=== PATIENT | female | born 1950 | race Caucasian/White ===

== ENCOUNTER 2017-10-08 13:40 | Day surgery (SDC) | payer OTHER ==
[~2017-10-08] VITALS: Ht 170.2 cm; Wt 67.7 kg
[~2017-10-08 13:40] MED LIST: ABAC300 PO; ACEBUTCAFT; ALEN70; ALIS150T PO; ALLO100 PO; AMOCLA500 PO; ASCO500; ASPIRIN-ACETAM1 EACH; BUME1; BUME1 PO; BUME2; BUME2 PO; BUMETANIDE; BUPR100; BUPR100ER; BUPR150ER PO; BUPR150T2; BUPR150T2 PO; Budeprion Sr150 MG; Budeprion Sr150 MG PO; CEPH250A PO; CEPH500 PO; CHOL10002; CHOL10002 PO; CIPHYDOTSU OT; CIPR500 PO; COMBIVIR; CYCL10 PO; Clonazepam0.5 MG PO; Crestor20 MG PO; DEPLIN; DEPLIN PO; DILT120 PO; DILT240 PO; DILT360ER; DIPATR PO; DOXE0.5 PO; EDURANT PO; EDURANT25 MG; EDURANT25 MG PO; EFAV200; EFAV200 PO; EFFEXOR; EPZICOM; ESCI10; ESOM20; EXELON PATCH TOP; Effexor Xr150 MG; Epzicom Tablet1 EACH; Epzicom Tablet1 EACH PO; FEBU40TA; FERR325; FERR325 PO; FURO40; Fosamax70 MG PO; GLIM2; GLIM4; GLIM4 PO; GLIMEPIRIDE; HECTOROL1 MCG; HYDACE5 PO; HYDACE7.5 PO; INDO50 PO; INSLI100I SC; INSLIS75I SUBQ; INSU7030P; INSULANI; INSULANI SC; INSULANI SUBQ; INSULANPEN SC; INSULISPEN SC; IRON 325 MG; LAMZIDT; LAMZIDT PO; LAVAP17G PO; LEVE500 PO; LINZESS145 MCG; LINZESS290 MCG; LIRA0.6P; LIRA0.6P INJ; LORA1 PO; MAG OX; MAGCHL64ER; MAGCHL64ER PO; MAGN84; MAGOXI400; MAGOXI400 PO; MECL25 PO; MEMA10 PO; MEMA5TAB; METF500; METF500 PO; METF500C; METO10; METO5; METO5 PO; MIRT15; MIRT30; MIRT30 PO; MODA200; MULVITA; MULVITMINE; MULVITMINE PO; Meribin5 MG; Meribin5 MG PO; NITR.1TP TOP; OMEG1CAP30; OMEG1CAP30 PO; OMEP10ER; OMEP20ER; OMEP20ER PO; OXYACE5T PO; OXYACE7.5T PO; PARI1 PO; POTA10T; POTA10T PO; POTA8; POTCHL10ER PO; POTCHL20ER; POTCHL20ER PO; POTCIT10; PRED10 PO; PREG100 PO; PREG150; PREG150 PO; PREG50; PREG75; PREN-16 PO; PRENZ; PRENZ PO; PROM25 PO; PROP40; Prinivil10 MG; RAMI1.25; RAMI1.25 PO; RANI150; REMERON SOLUTAB; ROSU10TA; ROSU10TA PO; RXCYCL10 PO; RXHYDACE PO; RXOXYACE PO; SERT100; SPIR50; SPIR50 PO; TEKTURNA; TRULICITY1.5 MG/0.5; Uloric80 MG PO; VENL150ER PO; VENL75ER; VENL75ER PO; WARF2 PO; WARF2.5; WARF2.5 PO; WARF3; WARF3 PO; WARF4 PO; WARF5; WARF5 PO; WELLBUTRIN XL; XARELTO20 MG; [UNRECOGNIZED DRUG - CODE] PO; [UNRECOGNIZED DRUG - OTHER] PO
== END 2017-10-08 15:45 | disposition home or self-care (01) ==
LOC: ORSCSDS 13:40
PROVIDERS: Internal Medicine Gastroenterology
PROC: 0DBM8ZX Excision of Descending Colon, Via Natural or Artificial Opening Endoscopic, Diagnostic (ICD-10-PCS; principal; 2017-10-08 15:00)
PROC: 0DBH8ZX Excision of Cecum, Via Natural or Artificial Opening Endoscopic, Diagnostic (ICD-10-PCS; principal; 2017-10-08 15:00)
DX: D50.9 Iron deficiency anemia, unspecified (principal); D12.0 Benign neoplasm of cecum; D12.4 Benign neoplasm of descending colon; D12.5 Benign neoplasm of sigmoid colon; K57.30 Diverticulosis of large intestine without perforation or abscess without bleeding; K64.0 First degree hemorrhoids; B20 Human immunodeficiency virus [HIV] disease; I10 Essential (primary) hypertension; I48.91 Unspecified atrial fibrillation; E11.22 Type 2 diabetes mellitus with diabetic chronic kidney disease; N18.3 Chronic kidney disease, stage 3 (moderate); F17.210 Nicotine dependence, cigarettes, uncomplicated; E78.5 Hyperlipidemia, unspecified; Z79.899 Other long term (current) drug therapy; Z79.82 Long term (current) use of aspirin
CPT/HCPCS: 82947; 88305; J1815; J7120

== ENCOUNTER → 2017-10-26 | Outpatient (CLI) | payer OTHER ==
[~2017-10-26] MED LIST changes: +Norco 10-325 T1 EACH PO; +Zofran Odt4 MG SL
[2017-10-26 11:02] LABS: Creatinine Urine 33.1 mg/dL (27.00-270.00)
== END ==
LOC: LAB SHORT 08:30 → OLS 08:30 → LAB FUT 10-24 14:30
PROVIDERS: Internal Medicine Nephrology
DX: N18.2 Chronic kidney disease, stage 2 (mild) (principal); D63.1 Anemia in chronic kidney disease; N25.81 Secondary hyperparathyroidism of renal origin; E55.9 Vitamin D deficiency, unspecified; E78.00 Pure hypercholesterolemia, unspecified; R76.9 Abnormal immunological finding in serum, unspecified; R94.5 Abnormal results of liver function studies; R94.6 Abnormal results of thyroid function studies
CPT/HCPCS: 81050; 82530; 82570

== ENCOUNTER 2018-06-08 09:21 | Emergency (ER) | payer OTHER ==
[~2018-06-08] VITALS: Ht 165.1 cm; Wt 70.3 kg
[~2018-06-08 09:21] MED LIST changes: -Norco 10-325 T1 EACH PO; -Zofran Odt4 MG SL
[2018-06-08] MEDS ORDERED: Norco 10-325 T1 EACH PO (11:59)
[2018-06-08] MEDS ORDERED: Zofran Odt4 MG SL (11:59)
== END 2018-06-08 12:48 | disposition home or self-care (01) ==
LOC: ER 09:21
DX: S32.501A Unspecified fracture of right pubis, initial encounter for closed fracture (principal); S00.03XA Contusion of scalp, initial encounter; F32.9 Major depressive disorder, single episode, unspecified; E11.9 Type 2 diabetes mellitus without complications; F17.210 Nicotine dependence, cigarettes, uncomplicated; Z79.899 Other long term (current) drug therapy; Z79.84 Long term (current) use of oral hypoglycemic drugs; Z86.718 Personal history of other venous thrombosis and embolism; Z86.711 Personal history of pulmonary embolism; W18.30XA Fall on same level, unspecified, initial encounter
CPT/HCPCS: 70450; 73502; 99284-25

== ENCOUNTER 2019-10-18 15:07 | Emergency (ER) | payer OTHER ==
[~2019-10-18] VITALS: Ht 165.1 cm; Wt 70.3 kg
[~2019-10-18 15:07] MED LIST changes: +Norco 10-325 T1 EACH PO; +Zofran Odt4 MG SL
[2019-10-18 15:45] LABS: BASOPHILS ABSOLUTE AUTO 0.06 K/mm3 (0.00-0.23); BASOPHILS PERCENT AUTO 1 % (0-2); EOSINOPHILS ABSOLUTE AUTO 0.36 K/mm3 (0.00-0.68); EOSINOPHILS PERCENT AUTO 4 % (0-6); Hemoglobin 14.8 g/dL (11.5-16.0); IMMATURE GRAN ABSOLUTE AUTO 0.05 K/mm3 (0.00-0.10); IMMATURE GRAN PERCENT AUTO 1 % (0-1); LYMPHOCYTES ABSOLUTE AUTO 2.14 K/mm3 (0.84-5.20); LYMPHOCYTES PERCENT AUTO 21 % (21-46); MONOCYTES ABSOLUTE AUTO 0.55 K/mm3 (0.16-1.47); MONOCYTES PERCENT AUTO 5 % (4-13); Mean Corpuscular HGB 33.2 pg (26.0-34.0); Mean Corpuscular HGB Conc 31.5 g/dL (31.5-36.5); Mean Corpuscular Volume 105 fL (80-100); Mean Platelet Volume 12.6 fL (9.1-12.4); NEUTROPHILS ABSOLUTE AUTO 7.13 K/mm3 (1.96-9.15); NEUTROPHILS PERCENT AUTO 69 % (41-73); Platelet Count 203 K/mm3 (150-400); RDW Coefficient Variation 13.7 % (11.7-14.2); RDW Standard Deviation 54.1 fL (35.1-46.3); Red Blood Cell Count 4.46 M/mm3 (3.80-5.20); White Blood Cell Count 10.29 K/mm3 (4.00-11.30)
[2019-10-18 15:57] LABS: International Normalized Ratio 1.01; Prothrombin Time Results 10.8 Sec (9.7-11.5)
[2019-10-18 16:02] LABS: Albumin, Blood 3.8 g/dL (3.4-5.0); Albumin/Globulin Ratio 1.1 (0.8-1.8); Bilirubin, Total 0.3 mg/dL (0.1-1.0); Bun/Creatinine Ratio 30.8 (12.0-20.0); Creatinine, Blood 1.07 mg/dL (0.40-1.00); Globulin, Blood 3.5 g/dL (2.2-4.0); Potassium, Blood 4.1 mmol/L (3.5-5.5); Total Protein, Blood 7.3 g/dL (6.4-8.2)
== END 2019-10-18 17:39 | disposition home or self-care (01) ==
LOC: ER 15:07
PROVIDERS: Physician Assistant
DX: I82.811 Embolism and thrombosis of superficial veins of right lower extremity (principal); F32.9 Major depressive disorder, single episode, unspecified; E11.9 Type 2 diabetes mellitus without complications; F17.210 Nicotine dependence, cigarettes, uncomplicated; Z88.8 Allergy status to other drugs, medicaments and biological substances; Z88.2 Allergy status to sulfonamides; Z79.899 Other long term (current) drug therapy; Z79.84 Long term (current) use of oral hypoglycemic drugs; Z79.82 Long term (current) use of aspirin; Z86.711 Personal history of pulmonary embolism; Z86.718 Personal history of other venous thrombosis and embolism
CPT/HCPCS: 36415; 80053; 85025; 85610; 85730; 93971; 99284-25

== ENCOUNTER → 2020-01-09 | Outpatient (CLI) | payer OTHER | LOC: LAB SHORT 11:49 → LAB 11:49 → LAB FUT 12-29 08:45 | PROVIDERS: Internal Medicine Endocrinology, Diabetes & Metabolism | DX: D35.02 Benign neoplasm of left adrenal gland (principal) | CPT/HCPCS: 81050; 82530 ==

== ENCOUNTER → 2020-02-09 | Outpatient (CLI) | payer OTHER | END | disposition home or self-care (01) | LOC: LAB UCHC 14:37 → LAB SHORT 14:37 | DX: N39.0 Urinary tract infection, site not specified (principal); A02.9 Salmonella infection, unspecified | CPT/HCPCS: 87086 ==

== ENCOUNTER → 2020-02-09 | Outpatient (CLI) | payer OTHER | END | disposition home or self-care (01) | LOC: OLS 22:30 → LAB SHORT 22:30 → LAB FUT 02-08 13:30 → EDSTATUS 02-08 13:30 | DX: A02.9 Salmonella infection, unspecified (principal) | CPT/HCPCS: 87015; 87045; 87046; 87205; 87899 ==

== ENCOUNTER → 2020-03-04 | Outpatient (CLI) | payer OTHER ==
[~2020-03-04] MED LIST changes: +BASAGLAR K100 UNIT/1 SC; -CHOL10002; +ELIQUIS5 MG PO; -FEBU40TA; +FEBU40TA PO; +GLIM2 PO; -METF500C; +METF500C PO; -PREG150; +PROLIA60 MG/1 ML SC; +Pepcid20 MG PO; -Prinivil10 MG; +Prinivil10 MG PO; +Prozac40 MG PO; +TOPI100 PO; +TRULICITY0.75 MG/01 SC; -TRULICITY1.5 MG/0.5; +VITAMIN D310 MC4 PO
== END ==
LOC: LAB 14:45 → LAB SHORT 14:45 → LAB FUT 02-25 15:00
DX: D35.02 Benign neoplasm of left adrenal gland (principal); E24.9 Cushing's syndrome, unspecified
CPT/HCPCS: 82533

== ENCOUNTER 2020-08-12 00:27 | Emergency (ER) | payer OTHER ==
[~2020-08-12] VITALS: Ht 167.6 cm; Wt 70.3 kg
== END 2020-08-12 01:14 | disposition home or self-care (01) ==
LOC: ER 00:27
DX: I97.618 Postprocedural hemorrhage of a circulatory system organ or structure following other circulatory system procedure (principal); F32.9 Major depressive disorder, single episode, unspecified; E11.9 Type 2 diabetes mellitus without complications; F17.210 Nicotine dependence, cigarettes, uncomplicated; Z88.1 Allergy status to other antibiotic agents; Z88.2 Allergy status to sulfonamides; Z88.8 Allergy status to other drugs, medicaments and biological substances; Z79.4 Long term (current) use of insulin; Z21 Asymptomatic human immunodeficiency virus [HIV] infection status; Z79.01 Long term (current) use of anticoagulants; Z79.899 Other long term (current) drug therapy; Z86.718 Personal history of other venous thrombosis and embolism
CPT/HCPCS: 99282-25

== ENCOUNTER 2020-08-26 11:30 | Emergency (ER) | payer OTHER ==
[~2020-08-26] VITALS: Ht 170.2 cm; Wt 68.0 kg
[2020-08-26 13:47] LABS: Hemoglobin 12.2 g/dL (11.5-16.0); Mean Corpuscular HGB Conc 32.1 g/dL (31.5-36.5); Mean Corpuscular Volume 100 fL (80-100); Mean Platelet Volume 12.8 fL (9.1-12.4); Platelet Count 193 K/mm3 (150-400); RDW Coefficient Variation 14.9 % (11.7-14.2); RDW Standard Deviation 55.8 fL (35.1-46.3); Red Blood Cell Count 3.81 M/mm3 (3.80-5.20); White Blood Cell Count 11.63 K/mm3 (4.00-11.30)
[2020-08-26 14:01] LABS: International Normalized Ratio 1.07; Prothrombin Time Results 11.4 Sec (9.7-11.5)
[2020-08-26 14:09] LABS: Anion Gap 7 mmol/L (6-16); Blood Urea Nitrogen 22 mg/dL (8-24); Bun/Creatinine Ratio 26.3 (12.0-20.0); CO2, Blood 22 mmol/L (21-32); Calcium, Blood 8.8 mg/dL (8.5-10.1); Chloride, Blood 116 mmol/L (98-108); Creatinine, Blood 0.84 mg/dL (0.40-1.00); Glomerular Filtration Rate >60 (60-); Glucose, Blood 101 mg/dL (70-99); Potassium, Blood 3.8 mmol/L (3.5-5.5); Sodium, Blood 145 mmol/L (136-145)
[2020-08-26 14:11] LABS: Influenza A, PCR Negative (NEGATIVE); Influenza B, PCR Negative (NEGATIVE); Resp Syncytial Virus, PCR Negative (NEGATIVE); SARS-Cov-2 (COVID-19) PCR, MMC Negative (NEGATIVE)
== END 2020-08-26 14:15 | disposition other institution (70) ==
LOC: ER 11:30
PROVIDERS: Physician Assistant; Radiology Diagnostic Radiology
DX: M79.671 Pain in right foot (principal); E11.9 Type 2 diabetes mellitus without complications; F32.9 Major depressive disorder, single episode, unspecified; F17.210 Nicotine dependence, cigarettes, uncomplicated; Z20.828 Contact with and (suspected) exposure to other viral communicable diseases; Z79.01 Long term (current) use of anticoagulants; Z79.4 Long term (current) use of insulin; Z79.899 Other long term (current) drug therapy; Z88.6 Allergy status to analgesic agent; Z88.2 Allergy status to sulfonamides; Z88.8 Allergy status to other drugs, medicaments and biological substances; Z21 Asymptomatic human immunodeficiency virus [HIV] infection status; Z86.718 Personal history of other venous thrombosis and embolism
CPT/HCPCS: 0241U; 36415; 80048; 85027; 85610; 99285; J1644; J2250; J3010; J7030; J7040; J7050

== ENCOUNTER 2020-08-26 15:28 | Day surgery (SDC) | payer OTHER ==
[~2020-08-26 15:28] MED LIST changes: -BUME2; -Budeprion Sr150 MG; -VITAMIN D310 MC4 PO; +VITAMIN D31000 UNI1 PO
--- NOTE | 2020-08-26 15:44 | NUR ---
154 PATIENT ASSISTED UP AND SITTING ON THE SIDE OF THE BED. RFA GROIN SITE OBSERVED. DRESSING CDI, SOFT, NO BLEEDING. PATIENT DRESSING SELF. RIDE HERE IN THE PARKING LOT. GATHERED ALL BELONGINGS. VVS. NO C/O PAIN FROM THE PATIENT. PIV CATHETER REMOVED, TIP INTACT AND PRESSURE DRESSING APPLIED. REVIEWED ALL DISCAHRGE INSTRUCTIONS WITH THE PATIENT AND COPIES. PATIENT TAKEN VIOA WHEELCHAIR TO PATIENT ENTRANCE AND DISCHARGED HOME WITH BUILDING MAINTENANCE REPAIRER, HELLEN, SISTER IN LAW.
--- NOTE | 2020-08-26 16:57 | NUR ---
PATIENT BROUGHT TO THE [facility] FOR A PERIPHERAL INTERVENTION FROM THE EMERGENCY ROOM. POST MAGAZINE EDITOR VISIT PATIENT WAS BROUGHT TO THE [facility] RECOVERY ROOM FOR POST PERIPHERAL INTERVENTION OBSERVATION. PLAN TO DISCAHRGE FROM HERE ORDERED BY DR. YOUSSEF.
--- NOTE | 2020-08-26 17:17 | NUR ---
ASSUMED CARE OF PATIENT S/P PERIPHERAL ANGIOGRAM. RFA ANGIOSEAL IN PLACE. SOFT, NO HEMATOMA NOTED, NO BLEEDING. PLACED ON THE MONITOR IN THE [facility] CENTER RECOVERY ROOM. CALL LIGHT IN REACH. DIET ORDERED. PATIENT PHONED FAMILY TO INFORM THEM WHERE SHE WAS LOCATED AND OF APPROXIMATE DISCHARGE TIME. DOPPLER PULSES NOTED TO THE RIGHT PT ONLY. PATIENT ON ROOM AIR.
--- NOTE | 2020-08-26 17:43 | NUR ---
HOB UP 30 DEGREES AND DINER TRAY SET UP FOR PATIENT TO EAT. LEFT GROIN STABLE. VVS.
--- NOTE | 2020-08-26 18:13 | NUR ---
LEFT GROIN CHECK, STABLE NO BLEEDING. STATES NO PAIN TO THE GROIN SITE BUT STATING THERE IS PAIN TO THE RIGHT FOOT. WAS A 10/10 WHEN SHE ARRIVED TODAY IN THE ER ADN NOT THE PAIN IN THE FOOT IS 7/10. SHE IS ABLE TO FEEL THE NURSE TOUCH THE FOOT AND HAD GOOD PUSH AGAINST NURSES HAND ON BOTTOM OF THE RIGHT FOOT.
--- NOTE | 2020-08-26 19:14 | NUR ---
LEFT GROIN UNCHANGED. PATIENT ON THE BEDPAN WITH ASSISTANCE. LOOSE STOOL NOTED. RUBY CARE GIVEN AND TAKEN OFF BEDPAN VIA LOG ROLLING WITH TWO NURSE ASSIST. PATIENT TOLERATED WELL.
--- NOTE | 2020-08-26 19:49 | NUR ---
1939 PATIENT ASSISTED TO SITTING ON THE SIDE OF THE BED. OFF MONITOR. STOOD ON OWN WITH WALKER SUPPORT. SMALL AMOUNT OF BLEEDING FROM RIGHT ANKLE PUNCTURE ATTEMPT. NO HEMATOMA NOTED. SEVERO PAD AND TEGADERM APPLIED TO RIGHT PT SITE. NO ACTIVE BLEED NOTED ONCE LEG UP ON THE BED. REVIEWED DISCHARGE INSTRUCTIONS WITH THE PATIENT.SHE WILL NEED TO CALL FOR FOLLOW UP APPOINTMENT TOMORROW FOR THREE WEEKS. PATIENT VERBALIZES UNDERSTANDING OF INSTRUCTIONS.
--- NOTE | 2020-08-26 19:52 | NUR ---
PATIENT ASSISTED WITH DRESSING. ALL BELONGINGS GATHERED AND PATIENT DRESSED. VVS. PIV DISCONTINUED, CATHETER TIP INTACT. PRESSURE DRESSING APPLIED TO IV SITE.
--- NOTE | 2020-08-26 20:13 | NUR ---
PATIENT DISCAHRGED VIA WHEELCHAIR TO PRIVATE VEHICLE/FAMILY WITH ALL BELONGINGS AND INSTRUCTIONS IN HAND.
[2020-12-20] MEDS ORDERED: CLOP75 PO (16:19)
[2020-12-20] MEDS ORDERED: Pristiq100 MG PO (16:20)
[2020-12-20] MEDS ORDERED: AIMOVIG AU70 MG/1 ML SC (16:21)
== END 2020-08-26 23:05 | disposition home or self-care (01) ==
LOC: MHTC 15:28
DX: E11.51 Type 2 diabetes mellitus with diabetic peripheral angiopathy without gangrene (principal); I70.211 Atherosclerosis of native arteries of extremities with intermittent claudication, right leg; I12.9 Hypertensive chronic kidney disease with stage 1 through stage 4 chronic kidney disease, or unspecified chronic kidney disease; E11.22 Type 2 diabetes mellitus with diabetic chronic kidney disease; N18.9 Chronic kidney disease, unspecified; G25.0 Essential tremor; I48.91 Unspecified atrial fibrillation; F17.210 Nicotine dependence, cigarettes, uncomplicated; D66 Hereditary factor VIII deficiency; Z20.828 Contact with and (suspected) exposure to other viral communicable diseases; Z88.2 Allergy status to sulfonamides; Z88.8 Allergy status to other drugs, medicaments and biological substances; Z79.4 Long term (current) use of insulin; Z79.01 Long term (current) use of anticoagulants; Z79.899 Other long term (current) drug therapy; Z86.718 Personal history of other venous thrombosis and embolism; Z86.711 Personal history of pulmonary embolism; Z21 Asymptomatic human immunodeficiency virus [HIV] infection status; F32.9 Major depressive disorder, single episode, unspecified
CPT/HCPCS: 0241U; 36140; 36415; 37224; 37228; 37232; 75716; 75774; 76937; 80048; 85027; 85610; 99152; 99153; 99285; C1725; C1760; C1769; C1887; C1894; J1644; J2250; J3010; J7030; J7040; J7050; Q9967

== ENCOUNTER 2020-11-17 05:56 | Day surgery (SDC) | payer OTHER ==
[~2020-11-17] VITALS: Ht 167.6 cm; Wt 64.4 kg
--- NOTE | 2020-11-17 11:00 | NUR ---
Pt received from Sanjeev Alves RN & Jay Weekly MASSAGE THERAPIST Pt alert and oriented denies pain. IV infusing into the Left AC with 300 NS BOSTON. Pt has a left groin site that is dry and intact with no bleeding noted, Left foot has two punture sites with a cristo wrap for bleeding in the landscape and yardwork laborer. The cristo wrap was removed both sites are normal with DP with site marked were there is a ugashik of old blood. Doppler left leg PT & DP present foot is warm to touch. I have spoken to spouse who has some type of neuro issue he is in the waiting area. I have given both patient and spouse water. Cleaned left groin area and foot. Call light given, pt is in reverse trendelenburg.
--- NOTE | 2020-11-17 13:42 | NUR ---
Dr. Medel here in recovery room talking to patient regarding results as well as putting patient on PLavix for one month. To follow up in two weeks.
--- NOTE | 2020-11-17 14:12 | NUR ---
PT VERBALIZED UNDERSTANDING OF D/C INSTRUCTIONS. PAPERWORK PROVIDED IN FOLDER. IV REMOVED FROM LAC WITH CATH INTACT, PRESSURE DRESSING APPLIED. ASSISTED INTO W/C, IN WAITING AREA TO DRIVE PT HOME. NO ACUTE DISTRESS NOTED AT TIME OF DISPO.
[2020-12-20] MEDS ORDERED: CLOP75 PO (16:19)
[2020-12-20] MEDS ORDERED: Pristiq100 MG PO (16:20)
[2020-12-20] MEDS ORDERED: AIMOVIG AU70 MG/1 ML SC (16:21)
== END 2020-11-17 15:10 | disposition home or self-care (01) ==
LOC: MHTC 05:56
DX: I70.213 Atherosclerosis of native arteries of extremities with intermittent claudication, bilateral legs (principal); I87.2 Venous insufficiency (chronic) (peripheral); I10 Essential (primary) hypertension; E11.51 Type 2 diabetes mellitus with diabetic peripheral angiopathy without gangrene; E11.69 Type 2 diabetes mellitus with other specified complication; B20 Human immunodeficiency virus [HIV] disease; Z87.891 Personal history of nicotine dependence; Z86.718 Personal history of other venous thrombosis and embolism; Z86.711 Personal history of pulmonary embolism; Z88.2 Allergy status to sulfonamides; Z88.8 Allergy status to other drugs, medicaments and biological substances; Z91.048 Other nonmedicinal substance allergy status; Z79.4 Long term (current) use of insulin
CPT/HCPCS: 37224; 37228; 37232; 75625; 75716; 75774; 76937; 82947; 85347; 99152; 99153; A9270; C1725; C1760; C1769; C1887; C1894; J1644; J2250; J3010; J7030; J7050; Q9967

== ENCOUNTER 2020-12-04 11:19 | Emergency (ER) | payer OTHER ==
[~2020-12-04] VITALS: Ht 167.6 cm; Wt 68.0 kg
[2020-12-20] MEDS ORDERED: CLOP75 PO (16:19)
[2020-12-20] MEDS ORDERED: Pristiq100 MG PO (16:20)
[2020-12-20] MEDS ORDERED: AIMOVIG AU70 MG/1 ML SC (16:21)
== END 2020-12-04 13:26 | disposition home or self-care (01) ==
LOC: ER 11:19
DX: S00.03XA Contusion of scalp, initial encounter (principal); E11.9 Type 2 diabetes mellitus without complications; Z88.6 Allergy status to analgesic agent; Z88.8 Allergy status to other drugs, medicaments and biological substances; Z88.2 Allergy status to sulfonamides; W22.8XXA Striking against or struck by other objects, initial encounter; Y92.000 Kitchen of unspecified non-institutional (private) residence as the place of occurrence of the external cause
CPT/HCPCS: 70450; 99283-25

== ENCOUNTER 2020-12-21 06:04 | Day surgery (SDC) | payer OTHER ==
[~2020-12-21] VITALS: Ht 167.6 cm; Wt 65.4 kg
[~2020-12-21 06:04] MED LIST changes: +AIMOVIG AU70 MG/1 ML; +BUME2; +CLOP75 PO; +DESV50 PO
--- NOTE | 2020-12-21 12:40 | NUR ---
PT UP TO BATHROOM, GROIN AND PEDAL SITE STABLE. DRESSED PER SELF. SALINE LOCK REMOVED WITH CATHETER INTACT. DISCHARGE GONE OVER WITH PT AND , BOTH VERBALIZE UNDERSTANDING. PT TO PRIVATE VEHICLE PER W/C
== END 2020-12-21 13:00 | disposition home or self-care (01) ==
LOC: MHTC 06:04
DX: I70.213 Atherosclerosis of native arteries of extremities with intermittent claudication, bilateral legs (principal); G89.18 Other acute postprocedural pain; E11.69 Type 2 diabetes mellitus with other specified complication; I48.91 Unspecified atrial fibrillation; I10 Essential (primary) hypertension; Z87.891 Personal history of nicotine dependence; Z20.822 Contact with and (suspected) exposure to COVID-19
CPT/HCPCS: 37226; 37230; 37232; 75625; 75716; 75774; 76937; 85347; 99152; 99153; C1725; C1760; C1769; C1874; C1885; C1887; C1894; C2623; J1644; J2250; J3010; J7030; J7050; Q9967

== ENCOUNTER 2020-12-23 11:16 | Day surgery (SDC) | payer OTHER ==
[~2020-12-23] VITALS: Ht 167.6 cm; Wt 64.0 kg
--- NOTE | 2020-12-23 17:05 | NUR ---
ASSUMED CARE OF PT. PT DOSING, BUT EASILY AROUSABLE; ANSWERS QUESTIONS APPROPRIATELY; DENIES PAIN POST PROCEDURE. MONITOR SR 70'S, B/P 105/57, SPO2 98-100% RA. L GROIN NO SWELLING/HEMATOMA, TEGADERM DRSG INTACT; RLE PULSES 1+ X 2. R DP SITE NO SWELLING/HEMATOMA, SEVERO AND TEGADERM DRSG INTACT-OLD DRAINAGE W/I MAPPING.
--- NOTE | 2020-12-23 17:35 | NUR ---
PT AMB TO BATHROOM, GAIT STEADY; VOIDED QS, SITE UNCHANGED WITH ACTIVITY.
--- NOTE | 2020-12-23 17:45 | NUR ---
PT DRESSED SELF WITHOUT ISSUE, SITE UNCHANGED; IV REMOVED-CANNULA INTACT.
--- NOTE | 2020-12-23 17:51 | NUR ---
PT AND SPOUSE RECEIVED DISCHARGE INSTRUCTIONS, MED LIST AND AFTER CARE INSTRUCTIONS; VERBALIZED GOOD UNDERSTANDING. PT LEFT FACILITY VIA W/C, CONDITION STABLE.
== END 2020-12-23 22:42 | disposition home or self-care (01) ==
LOC: MHTC 11:16
DX: I70.213 Atherosclerosis of native arteries of extremities with intermittent claudication, bilateral legs (principal); I48.91 Unspecified atrial fibrillation; E11.9 Type 2 diabetes mellitus without complications; I10 Essential (primary) hypertension; Z86.718 Personal history of other venous thrombosis and embolism; Z88.5 Allergy status to narcotic agent; Z88.8 Allergy status to other drugs, medicaments and biological substances; Z79.01 Long term (current) use of anticoagulants; Z79.899 Other long term (current) drug therapy; Z20.822 Contact with and (suspected) exposure to COVID-19
CPT/HCPCS: 76937; 82947; 85347; 99152; 99153; C1725; C1760; C1769; C1885; C1887; C1894; C2623; J1644; J2250; J3010; J7030; J7050; Q9967

== ENCOUNTER 2021-01-15 12:05 | Inpatient (IN) | payer MEDICARE, OTHER ==
[~2021-01-15] VITALS: Ht 167.6 cm; Wt 67.2 kg
[~2021-01-15 12:05] MED LIST changes: -AIMOVIG AU70 MG/1 ML; +AIMOVIG AU70 MG/1 ML SC; -BUME2; -DESV50 PO; +Pristiq100 MG PO
[2021-01-15 12:35] LABS: BASOPHILS ABSOLUTE AUTO 0.07 K/mm3 (0.00-0.23); BASOPHILS PERCENT AUTO 1 % (0-2); EOSINOPHILS ABSOLUTE AUTO 0.31 K/mm3 (0.00-0.68); EOSINOPHILS PERCENT AUTO 4 % (0-6); Hematocrit 29.2 % (33.0-51.0); Hemoglobin 9.3 g/dL (11.5-16.0); IMMATURE GRAN ABSOLUTE AUTO 0.02 K/mm3 (0.00-0.10); IMMATURE GRAN PERCENT AUTO 0 % (0-1); LYMPHOCYTES ABSOLUTE AUTO 1.27 K/mm3 (0.84-5.20); LYMPHOCYTES PERCENT AUTO 15 % (21-46); MONOCYTES ABSOLUTE AUTO 0.43 K/mm3 (0.16-1.47); MONOCYTES PERCENT AUTO 5 % (4-13); Mean Corpuscular HGB 33.1 pg (26.0-34.0); Mean Corpuscular HGB Conc 31.8 g/dL (31.5-36.5); Mean Corpuscular Volume 104 fL (80-100); Mean Platelet Volume 12.8 fL (9.1-12.4); NEUTROPHILS ABSOLUTE AUTO 6.39 K/mm3 (1.96-9.15); NEUTROPHILS PERCENT AUTO 75 % (41-73); Platelet Count 188 K/mm3 (150-400); RDW Coefficient Variation 16.2 % (11.7-14.2); RDW Standard Deviation 62.6 fL (35.1-46.3); Red Blood Cell Count 2.81 M/mm3 (3.80-5.20); White Blood Cell Count 8.49 K/mm3 (4.00-11.30)
[2021-01-15] MEDS ORDERED: ROSUVASTATIN CA40 MG PO (12:47)
[2021-01-15 12:50] LABS: Calcium, Ionized (POC) 1.05 mmol/L (1.10-1.46); Chloride (POC) 119 mmol/L (98-108); Creatinine (POC) 4.1 mg/dL (0.6-1.0); Glucose (ISTAT POC) 117 mg/dL (70-99); Hemoglobin (POC) 6.5 g/dL (12.0-16.0); Potassium (POC) 4.6 mmol/L (3.5-5.5); Sodium (POC) 143 mmol/L (135-148); Total CO2 (POC) 12 mmol/L (21-32)
[2021-01-15 13:02] LABS: Alanine Aminotransfer (ALT/SGP 25 U/L (12-78); Albumin, Blood 2.7 g/dL (3.4-5.0); Albumin/Globulin Ratio 0.9 (0.8-1.8); Alk Phos 63 U/L (50-136); Anion Gap 12 mmol/L (6-16); Aspartate Aminotrans (AST/SGOT 28 U/L (12-37); Bilirubin, Total 0.9 mg/dL (0.1-1.0); Blood Urea Nitrogen 96 mg/dL (8-24); Bun/Creatinine Ratio 23.5 (12.0-20.0); CO2, Blood 12 mmol/L (21-32); Calcium, Blood 7.4 mg/dL (8.5-10.1); Chloride, Blood 116 mmol/L (98-108); Creatinine, Blood 4.08 mg/dL (0.40-1.00); Ethanol (Alcohol), Blood, Med <3 mg/dL; Free Thyroxine 0.79 ng/dL (0.70-1.60); Glomerular Filtration Rate 12 (60-); Glucose, Blood 127 mg/dL (70-99); Magnesium, Blood 1.9 mg/dL (1.6-2.4); Sodium, Blood 140 mmol/L (136-145); Total Protein, Blood 5.7 g/dL (6.4-8.2); Troponin I <0.015 ng/mL (0.000-0.040)
[2021-01-15] MEDS ORDERED: VASCEPA1 G1 PO (13:17)
[2021-01-15] MEDS ORDERED: BASAGLAR K100 UNIT/1 (13:17)
[2021-01-15 13:23] LABS: U Amphetamine Screen Not Detected; U Barbituate Screen Not Detected; U Benzodiazapine Screen Not Detected; U Buprenorphine Screen Not Detected; U Cannabinoids Screen Not Detected; U Cocaine Screen Not Detected; U Methadone Screen Not Detected; U Methamphetamine Screen Not Detected; U Opiates Screen DETECTED; U Oxycodone Screen Not Detected; U Phencyclidine Screen Not Detected; U Propoxyphene Screen Not Detected
[2021-01-15 13:48] LABS: PCO2 Arterial 27.2 mmHg (35-45); PO2 Arterial 90.5 mmHg (80-100); pH Blood Arterial 7.17 (7.35-7.45)
[2021-01-15 14:08] LABS: Source, Urine Catheter
[2021-01-15 14:14] LABS: Appearance, Urine Turbid (Clear); Bilirubin, Urine Neg (Neg); Blood, Urine 3+ (Neg); Color, Urine Yellow (P-Yellow); Glucose Qualitative, Urine Neg (Neg); Ketones, Urine Neg (Neg); Leukocyte Esterase, Urine 3+ (Neg); Nitrite, Urine Neg (Neg); Protein, Urine 2+ (Neg); Specific Gravity, Urine 1.015 (1.003-1.022); Urobilinogen, Urine NORM (Normal)
[2021-01-15 14:22] LABS: White Blood Cells, Urine TNTC /hpf (0-5)
[2021-01-15 14:26] LABS: Bacteria Many /hpf; Squamous Epithelial Cells Mod /hpf (Few)
[2021-01-15 15:57] LABS: Albumin, Blood 2.5 g/dL (3.4-5.0); Anion Gap 11 mmol/L (6-16); Blood Urea Nitrogen 86 mg/dL (8-24); Bun/Creatinine Ratio 23.3 (12.0-20.0); CO2, Blood 14 mmol/L (21-32); Calcium, Blood 6.8 mg/dL (8.5-10.1); Chloride, Blood 119 mmol/L (98-108); Creatinine, Blood 3.69 mg/dL (0.40-1.00); Glomerular Filtration Rate 13 (60-); Glucose, Blood 178 mg/dL (70-99); Phosphorus, Blood 4.1 mg/dL (2.5-4.9); Potassium, Blood 4.9 mmol/L (3.5-5.5); Sodium, Blood 144 mmol/L (136-145)
[2021-01-15 16:10] LABS: International Normalized Ratio 1.19; Prothrombin Time Results 12.7 Sec (9.7-11.5)
[2021-01-15 16:34] LABS: PCO2 Arterial 27.2 mmHg (35-45); PO2 Arterial 120 mmHg (80-100); pH Blood Arterial 7.25 (7.35-7.45)
--- NOTE | 2021-01-15 18:38 | NUR ---
PT ADMITTED TO ICU FROM ER AT 1650 FOR UROSEPSIS. PT ARRIVED W LEVOPHED AT 2MCG, BICARB GTT AT 100, NS AT 125. PER BENNY DREW DC'D. HEPARIN GTT STARTED AT 15UNITS/KG/HR PER PHARMACY; PT HAS RECENT HX OF BLOOD CLOTS/DVT. PT HAS HAD RECENT PERIPHERAL ANGIOGRAM W DR YOUSSEF. RIGHT TOES RED AND SWOLLEN; PT STATES DR YOUSSEF AWARE. FEET ARE PINK WARM, DOPPLER ONLY TO RIGHT DP/PT. PT WIDE AWAKE, DENIES C/O PAIN, NAUSEA. PT VERY SLOW TO RESPOND TO QUESTIONS, SOME SPEECH SLIGHTLY SLURRED. PT SHOWS SYMPTOMS OF EXPRESSIVE APHASIA. PT'S STRENGTH IS EQUAL AND STRONG, HEAD CT NEG.
--- NOTE | 2021-01-15 19:40 | NUR ---
SHIFT ASSESSMENT ASSUMED CARE OF PT @ 1900, REPORT RECEIVED FROM ALON CESAR. PT A&OX4, SLOW TO RESPOND. PER PREVIOUS NURSE PT HAS BEEN BECOMING MUCH MORE RESPONSIVE IN THE LAST COUPLE HOURS. ON BICARB GTT @ 100ML/HR, NS @ TKO, HEPARING GTT @ 15U/KG/HR AND LEVOPHED @ 2MCG c A MAP >65. TEMP GUERRERO CATH DRAINING YELLOW URINE. PT RECENTLY UNDERWENT AN ANGIOGRAM TO RIGHT LEG. RIGHT TOES RED AND MILDLY SWOLLEN. R DORSALIS PEDIS AND POSTERIOR TIBIAL PULSE CONFIRMED WITH DOPPLER, PT REPORTS SENSATION OF ALL THE REDDENED TOES, STATES THIS IS HOW THEY HAVE LOOKED SINCE THE PROCEDURE. WILL CONTNIUE TO CLOSELY MONITOR.
[2021-01-15 20:07] LABS: PCO2 Arterial 26.4 mmHg (35-45); PO2 Arterial 112 mmHg (80-100); pH Blood Arterial 7.24 (7.35-7.45)
[2021-01-15 20:54] LABS: Bun/Creatinine Ratio 23.3 (12.0-20.0); Calcium, Blood 7.4 mg/dL (8.5-10.1); Creatinine, Blood 3.6 mg/dL (0.40-1.00); Potassium, Blood 4.5 mmol/L (3.5-5.5)
[2021-01-16 03:36] LABS: BASOPHILS ABSOLUTE AUTO 0.01 K/mm3 (0.00-0.23); BASOPHILS PERCENT AUTO 0 % (0-2); EOSINOPHILS PERCENT AUTO 0 % (0-6); Hematocrit 26.9 % (33.0-51.0); IMMATURE GRAN ABSOLUTE AUTO 0.04 K/mm3 (0.00-0.10); IMMATURE GRAN PERCENT AUTO 1 % (0-1); LYMPHOCYTES ABSOLUTE AUTO 0.87 K/mm3 (0.84-5.20); LYMPHOCYTES PERCENT AUTO 14 % (21-46); MONOCYTES ABSOLUTE AUTO 0.08 K/mm3 (0.16-1.47); MONOCYTES PERCENT AUTO 1 % (4-13); Mean Corpuscular HGB 33.1 pg (26.0-34.0); Mean Corpuscular HGB Conc 33.5 g/dL (31.5-36.5); Mean Corpuscular Volume 99 fL (80-100); Mean Platelet Volume 12.8 fL (9.1-12.4); NEUTROPHILS ABSOLUTE AUTO 5.34 K/mm3 (1.96-9.15); NEUTROPHILS PERCENT AUTO 84 % (41-73); Platelet Count 166 K/mm3 (150-400); RDW Coefficient Variation 15.9 % (11.7-14.2); Red Blood Cell Count 2.72 M/mm3 (3.80-5.20); White Blood Cell Count 6.34 K/mm3 (4.00-11.30)
[2021-01-16 04:25] LABS: Base Excess Venous -8.2 mmol/L; Bicarbonate Venous 18.4 mmol/L (24.0-30.0); PCO2 Venous 32.7 mmHg (38-42); PO2 Venous 142 mmHg (38-42); pH Blood Venous 7.34 (7.34-7.37)
[2021-01-16 05:04] LABS: Albumin, Blood 2.3 g/dL (3.4-5.0); Albumin/Globulin Ratio 0.9 (0.8-1.8); Bilirubin, Total 0.6 mg/dL (0.1-1.0); Bun/Creatinine Ratio 23.7 (12.0-20.0); Calcium, Blood 6.4 mg/dL (8.5-10.1); Creatinine, Blood 3.34 mg/dL (0.40-1.00); Globulin, Blood 2.5 g/dL (2.2-4.0); Magnesium, Blood 1.6 mg/dL (1.6-2.4); Phosphorus, Blood 3.6 mg/dL (2.5-4.9); Potassium, Blood 3.8 mmol/L (3.5-5.5); Total Protein, Blood 4.8 g/dL (6.4-8.2)
--- NOTE | 2021-01-16 06:08 | NUR ---
SHIFT SUMMARY PT REMAINS A&OX4. RESPONSE TIME TO QUESTIONING HAS IMPROVED DURING THE NIGHT. PT REMAINS ON THE BICARB AND HEPARIN GTT, NO CHANGES IN RATE. LEVOPHED HAS BEEN ON STANDBY SINCE MIDNIGHT WHILE MAINTAINING A MAP >65. STARTED PT ON MIDODRINE PO TID. PULSES CONTINUE TO REMAIN PATENT VIA DOPPLER IN THE RIGHT LOWER EXTREMITY. GUERRERO CATH CONTINUES TO DRAIN YELLOW/ CLOUDY URINE. NO OTHER SIGNIFICANT CHANGES IN PT CONDITION, WILL CONTINUE TO MONITOR.
--- NOTE | 2021-01-16 08:48 | NUR ---
CARE OF PT ASSUMED AT 0700. PT SLEEPING SOUNDLY, AROUSES TO LOUD VOICE, HAS DIFFICULTY WAKING UP COMPLETELY THIS AM, PT STATES SHE DID NOT SLEEP WELL LAST NIGHT. PT CONTINUES TO HAVE SYMPTOMS OF EXPRESSIVE APHASIA, PT ALSO HAS TREMOR TO ARMS. STRENGTH STRONG AND EQUAL. PT STATES SHE HAS HAD THIS FOR > 1 YEAR WHEN ASKED. HEPARIN GTT WAS REDUCED TO 14UNITS THIS AM PER PHARMACY. LEVOPHED REMAINS OFF W MAP >65.
--- NOTE | 2021-01-16 08:58 | NUR ---
PT MORE AWAKE NOW EATING BREAKFAST. DR IVERSON IN TO SEE PT. FULL UPDATE GIVEN.
--- NOTE | 2021-01-16 10:30 | NUR ---
PT GIVEN BEDBATH, RED AREA; RASH TO LEFT LATERAL SCAPULA NOTED. I NOTED THIS LAST NIGHT ON ADMIT BUT THOUGHT IT WAS A TEMPORARY RED SPOT. PICTURE TAKEN, AREA DOES JAYLAN. DISTRICT ADMINISTRATOR AT BEDSIDE.
--- NOTE | 2021-01-16 12:30 | NUR ---
PT REQUEST PAIN MEDICATION FOR RIGHT FOOT; CHRONIC PAIN POST PERIPHERAL W DR YOUSSEF LAST MONTH. OXYCODONE ORDERED PER DR IVERSON. PT REQUEST TO USE HOME MEDS FOR FOOT: NITRO CREAM FOR FOOT FROM DR YOUSSEF AND A COMPOUND PHARMACY CREAM FROM DR FUNG. PT NOT TO USE THESE MEDS AT THIS TIME D/T AKF ON ADMIT; MEDS SENT TO PHARMACY.
[2021-01-16 13:16] LABS: Bicarbonate Venous 18.5 mmol/L (24.0-30.0); PO2 Venous 77.5 mmHg (38-42); pH Blood Venous 7.36 (7.34-7.37)
--- NOTE | 2021-01-16 13:39 | NUR ---
echocardiogram complete
--- NOTE | 2021-01-16 15:39 | NUR ---
HEPARIN GTT DECREASED TO 13.5UNITS/KG/HR PER PHARMACY. ATTEMPTED TO GO OVER MEDS AND HISTORY WITH PT, PT UNABLE TO COGNITIVELY COMPLETE TASK, MILDLY CONFUSED TO DATES, POOR MEMORY, SLOW TO RESPOND TO COMPLEX QUESTIONS.
--- NOTE | 2021-01-16 18:58 | NUR ---
CBG [address] IVERSON NOTIFIIED. SLIDING SCALE CHANGED FROM LOW TO MEDIUM, LONG ACTING INSULIN INCREASED WELL. OPEN END SPINNING OPERATOR COVERED PT WITH MED S/S. HEPARIN GTT REMAINS AT 13.5UNITS/KG/HR. PT HAS NOT REQUIRED ANY LEVOPHED SINCE LAST NIGHT, BP'S HAVE BEEN STABLE ON MIDODRINE. PT W GOOD APPETITE. NO OTHER CHANGES THIS SHIFT FROM PRIOR ASSESSMENT.
--- NOTE | 2021-01-16 19:48 | NUR ---
SHIFT ASSESSMENT ASSUMED CARE OF PT @ 1900. PT A&OX4, BUT STILL SLOW TO RESPOND TO SOME QUESTIONS. SITTING UPRIGHT IN BED WATCHING TV. DENIES PAIN OR DISCOMFORT AT THIS TIME BUT IS C/O NOT GETTING MUCH SLEEP. HEPARIN GTT @13.5U/KG/HR. BP STABLE WITH MIDODRINE AND LEVO ON SB. TEMP GUERRERO CATH PATENT, DRAINING SLIGHTLY CLOUDY YELLOW URINE. WILL CONTINUE TO MONITOR CLOSELY.
[2021-01-17 05:01] LABS: BASOPHILS ABSOLUTE AUTO 0.01 K/mm3 (0.00-0.23); BASOPHILS PERCENT AUTO 0 % (0-2); EOSINOPHILS PERCENT AUTO 0 % (0-6); Hematocrit 24.9 % (33.0-51.0); Hemoglobin 8.7 g/dL (11.5-16.0); IMMATURE GRAN ABSOLUTE AUTO 0.06 K/mm3 (0.00-0.10); IMMATURE GRAN PERCENT AUTO 1 % (0-1); LYMPHOCYTES ABSOLUTE AUTO 1.35 K/mm3 (0.84-5.20); LYMPHOCYTES PERCENT AUTO 10 % (21-46); MONOCYTES ABSOLUTE AUTO 0.45 K/mm3 (0.16-1.47); MONOCYTES PERCENT AUTO 3 % (4-13); Mean Corpuscular HGB 33.5 pg (26.0-34.0); Mean Corpuscular HGB Conc 34.9 g/dL (31.5-36.5); Mean Corpuscular Volume 96 fL (80-100); Mean Platelet Volume 12.6 fL (9.1-12.4); NEUTROPHILS ABSOLUTE AUTO 11.34 K/mm3 (1.96-9.15); NEUTROPHILS PERCENT AUTO 86 % (41-73); Platelet Count 152 K/mm3 (150-400); RDW Coefficient Variation 15.5 % (11.7-14.2); RDW Standard Deviation 54.6 fL (35.1-46.3); White Blood Cell Count 13.21 K/mm3 (4.00-11.30)
[2021-01-17 05:05] LABS: Base Excess Venous 4.3 mmol/L; PCO2 Venous 38.8 mmHg (38-42); PO2 Venous 144 mmHg (38-42); pH Blood Venous 7.47 (7.34-7.37)
[2021-01-17 05:18] LABS: Albumin, Blood 2.2 g/dL (3.4-5.0); Anion Gap 9 mmol/L (6-16); Blood Urea Nitrogen 70 mg/dL (8-24); Bun/Creatinine Ratio 24.1 (12.0-20.0); CO2, Blood 27 mmol/L (21-32); Calcium, Blood 6.4 mg/dL (8.5-10.1); Chloride, Blood 110 mmol/L (98-108); Glomerular Filtration Rate 17 (60-); Glucose, Blood 66 mg/dL (70-99); Magnesium, Blood 1.5 mg/dL (1.6-2.4); Phosphorus, Blood 3.5 mg/dL (2.5-4.9); Potassium, Blood 2.9 mmol/L (3.5-5.5); Sodium, Blood 146 mmol/L (136-145)
--- NOTE | 2021-01-17 06:54 | NUR ---
SHIFT SUMMARY PT REMAINS A&OX4. ABLE TO SLEEP IN SMALL STRETCHES DURING THE NIGHT. HEPARIN CONTINUES @ 13.5U/KG/HR. PTS GLUCOSE WAS ELEVATED DURING THE DAY AND INTO THE EVENING. CHANGED PT TO HIGH SS UNTIL CBG <300, ORDERS PLACED BACK TO MEDIUM SS. GUERRERO CATH REMAINS PATENT DRAINING LIGHT YELLOW URINE. VSS. NO OTHER SIGNIFICANT CHANGES IN PT CONDITION, WILL CONTINUE TO MONITOR.
--- NOTE | 2021-01-17 12:15 | NUR ---
CARE ASSUMED ASSESSMENTS COMPLETED, PT ALERT, ORIENTED X4, APPROPRIATE AND COOPERATIVE. MESSINA, HX PVD, R FOOT AND TOES RED, WARM, PULSES BY DOPPLER ONLY. CAP REFILL WNL, PT REPORTS CHRONIC R FOOT PAIN, MINIMAL AT THIS TIME. LLE WITH STRONG PULSES, PINK AND WARM, NO EDEMA NOTED TO BLE'S. LS CLEAR, PT ON RA, SPO2 >95%, PATRICIO SOB, NO COUGH NOTED. HRR, SBR 50-'S60'S, PT ASYMPTOMATIC. MIDODRINE HELD THIS MORNING FOR SBP 140, BP'S STABLE T/O AM. ABD SOFT, NONTENDER, PT UP TO BSC FOR LOOSE XL BM THIS MORNING, GAIT STEADY WITH 1 PERSON ASSIST. GUERRERO SECURED, PATENT AND DRAINING ADEQUATE VOLUMES OF CLEAR PALE YELLOW URINE. HEPARIN INFUSING AT 13.5U/KG/HR, IVF CHANGED TO 1/2 NS AT 75ML/HR PER ORDERS, MAG AND POTASSIUM REPLACED. CBG'S LABILE, WILL MEDICATE PER MAR. PT UP TO CHAIR THIS MORNING, HAD A BATH AT BEDSIDE, THEN BACK TO BED. IS NOW BACK UP TO CHAIR AFTER PHYSICAL THERAPY, EATING LUNCH WITHOUT DIFFICULTY.
--- NOTE | 2021-01-17 15:03 | NUR ---
UPDATE PT FINISHED LUNCH AND THEN WENT BACK TO BED, REMAINS ORIENTED X4. ADMISSION HX COMPLETED, PT NOW NAPPING. VSS, MIDODRINE DC'D. GOOD URINE OUTPUT THIS SHIFT, BLADDER TRANIING INITIATED IN PREPARATION FOR DC OF GUERRERO, GUERRERO CLAMPED AT 1500.
--- NOTE | 2021-01-17 15:03 | NUR ---
UPDATE PT SAT UP FOR
--- NOTE | 2021-01-17 17:29 | NUR ---
TRANSFER MED FLOOR 313 VS REMAIN STABLE, PT ALERT AND ORIENTED, APPROPRIATE AND COOPERATIVE. PT REPORTS BLADDER FEELS FULL, TUBING UNCLAMPED, 475ML OUT. GUERRERO DC'D AT THIS TIME WITHOUT COMPLICATIONS. REPORT TO RECEIVING RN, PT TO 313 AT THIS TIME WITH BELONGINGS, MEDS, AND CHART, TRANSFERRED BY STAFF VIA WC.
--- NOTE | 2021-01-17 17:59 | NUR ---
ADMISSION/SHIFT SUMMARY PATIENT TRANSFERRED AT 1730. PATIENT DENIES PAIN, NAUSEA, AND SHORTNESS OF BREATH. PATIENT SBA TO CHAIR. CESAR EDWARDS'D BY ICU PRIOR TO TRANSFER. NO VOID YET. HEPARIN DRIP RUNNING, RATE VERIFIED AT 13 U/KG/HR WITH EL CESAR. PLEASANT AND COOPERATIVE WITH CARE. GOOD APPETITE.
--- NOTE | 2021-01-17 22:45 | NUR ---
ASSUMPTION OF CARE. AOX3, 1 ASSIST TO THE BSC. PATIENT DID VOID CLEAR YELLOW URINE SINCE HER CATHETER WAS REMOVED EARLIER TODAY. STATES PAIN IN THE RIGHT PINKY TOE THAT IS LIKE A THROBBING SENSATION. GAVE HER TYLENOL PER REQUEST. PAIN IS ALREADY STARTING TO CLIMB BACK UP, WILL GIVE HER SOME NORCO. LUNG SOUNDS ARE CLEAR. HR SINUS. BLOOD SUGAR WAS 419, GAVE SCHEDULED MEDICATION AND CALLED MD TO NOTIFY. NO CHANGES THE PATIENT IS BRITTLE AND TENDS TO DROP EASILY. WILL RECHECK AROUND MIDNIGHT. HEPARIN RUNNING AT 13 UNITS/KG. VS WNL. AFEBRILE. WILL CONTINUE TO MONITOR. CALL LIGHT IN REACH.
--- NOTE | 2021-01-18 06:21 | NUR ---
SHIFT SUMMARY: AOX3, 1 ASSIST TO BSC. GOOD URINE OUTPUT SINCE CATH REMOVED. PAIN MANAGED WITH CURRENT TREATMENT, MEDICATED X1. PAIN IN RIGHT FOOT, SCABS ON TOES. OPEN TO AIR. NO DIARRHEA THIS SHIFT. LUNG SOUNDS CLEAR. NO SOB NOTED. IVF INFUSING AT 75ML/HR. HEPARIN RUNNING AT 13 UNITS/KG/HR. BLOOD SUGAR 419, NOTIFIED, GAVE REGULAR SCHEDULED INSULIN, RECHECK AT MIDNIGHT WAS DOWN IN THE 300'S, THIS AM IT IS 213. SLEPT OFF AND ON. CALL LIGHT IN REACH AND USED APPROPRATLY./
[2021-01-18 06:22] LABS: Albumin, Blood 2.2 g/dL (3.4-5.0); Anion Gap 8 mmol/L (6-16); Blood Urea Nitrogen 57 mg/dL (8-24); Bun/Creatinine Ratio 22.4 (12.0-20.0); CO2, Blood 28 mmol/L (21-32); Calcium, Blood 6.4 mg/dL (8.5-10.1); Chloride, Blood 110 mmol/L (98-108); Creatinine, Blood 2.55 mg/dL (0.40-1.00); Glomerular Filtration Rate 20 (60-); Glucose, Blood 246 mg/dL (70-99); Magnesium, Blood 1.6 mg/dL (1.6-2.4); Phosphorus, Blood 3.4 mg/dL (2.5-4.9); Sodium, Blood 146 mmol/L (136-145)
--- NOTE | 2021-01-18 18:04 | NUR ---
Spiritual care note: Provided supportive visit to Elizabeth. She spoke at length about her love for her SO and also how difficult it has become to care for him due to his alcoholism. "He can't do anything for himself." She feels very alone and only has one support person--her landscapper, who tries to help "as much as he can." She admits she can no longer manage it all. She releis on her higinio and the [facility] community for emotional/spiritual strength. Members of this community are visiting this afternoon. I provided a Book of Orthodox" at her request. Elizabeth responded well to theraputic listening, emotional affirmation, gentle senior counsel, and prayer. She will benefit from continued support. I will attempt visits as schedule permits.
--- NOTE | 2021-01-18 18:46 | NUR ---
SHIFT SUMMARY NO ACUTE CHANGES, A&Ox4, CALM AND COOPERATIVE. TREATED FOR PAIN X2 R/T R FOOT. PT CBG REMAIN ELEVATED AND ARE BEING TREATED PER ORDERS. PT REPORTS THAT SHE IS UNDER STRESS DUE TO NOT BEING HOME WITH FAMILY. HEPARIN DRIP REMAINS @ 13 UNITS/KG/HR. PT IS NOW INDEPENDENT TO [facility]. PT IS CURRENTLY SITTING UP IN HER CHAIR, CALL LIGHT WITHIN REACH. CALLS APPROPRIATELY.
--- NOTE | 2021-01-18 22:23 | NUR ---
ASSUMPTION OF CARE. AOX3. VERY FATIQUED AND WORNOUT. STATES SHE IS EXHAUSTED. PAIN ABOUT 6/10. MEDICATED PER EMAR. LUNGS AND HEART NORMAL. DRESSING ON COCCYX FOR PROTECTION. WOUNDS ON TOES STILL PAINFUL. HEPARIN STILL INFUSING. CURRENTLY IN THE SHOWER WITH GAS SCRUBBER OPERATOR. WILL CONTINUE TO MONITOR AND TREAT. CALL LIGHT IN REACH.
[2021-01-19 06:57] LABS: Hematocrit 27.8 % (33.0-51.0); Hemoglobin 9.2 g/dL (11.5-16.0)
[2021-01-19 07:22] LABS: Albumin, Blood 2.4 g/dL (3.4-5.0); Anion Gap 9 mmol/L (6-16); Blood Urea Nitrogen 50 mg/dL (8-24); Bun/Creatinine Ratio 22.6 (12.0-20.0); CO2, Blood 26 mmol/L (21-32); Calcium, Blood 6.2 mg/dL (8.5-10.1); Chloride, Blood 111 mmol/L (98-108); Creatinine, Blood 2.21 mg/dL (0.40-1.00); Glomerular Filtration Rate 23 (60-); Glucose, Blood 214 mg/dL (70-99); Magnesium, Blood 1.5 mg/dL (1.6-2.4); Phosphorus, Blood 3.2 mg/dL (2.5-4.9); Potassium, Blood 2.6 mmol/L (3.5-5.5); Sodium, Blood 146 mmol/L (136-145)
--- NOTE | 2021-01-19 07:23 | NUR ---
SHIFT SUMMARY: AOX3, INDEPENDENT TO BSC. SPECIMEN PROCESSOR GAVE SHOWER LAST NIGHT. RIGHT TOES STILL RED AND PAINFUL. KEEPS LEGS ELEVATED. VS SHOWED A DROP IN HER PULSE TO 48. DID REPORT A PERIODS OF SOB LAST NIGHT BUT POSITION CHANGE HELPED TO RELEIVE IT. REST OF VSS. AFEBRILE. MEDICATED FOR PAIN X2. DID NOT SLEEP MUCH LAST NIGHT. HEPARIN STILL RUNNING 13 UNITS/KG/HR. BLOOD SUGAR 407, GAVE NORMAL SCHEDULED INSULIN, BLOOD SUGAR DOWN TO 176 THIS AM. WAS VERY TIRED AND FATIQUED THIS SHIFT. ENCOURAGED HER TO PACE SELF. REPORT GIVEN TO DAYSHIFT. CALL LIGHT IN RECH.
[2021-01-19 08:35] LABS: Mean Platelet Volume 12.9 fL (9.1-12.4); Platelet Count 120 K/mm3 (150-400)
--- NOTE | 2021-01-19 16:53 | NUR ---
Supportive visit this afternoon. Pt denies pain and dyspnea at this time. Pt does reports some anxiety due to being in the hospital and concerns reagarding her SO. Offered therapeutic listening as Pt discusses her SO having PTSD and heaving drinking habits. She reports her SO relies on her for most aspects of daily life. Continued therapeutic listening and offered suggestions when appropriate. Pt reports having support through her yarsanism members and her son. She has recently established income through [employer] pension and some social security. Continued therapeutic listening. Pt expresses appreciation of visit and reports no other concerns at this time. Palliative Care will remain available.
--- NOTE | 2021-01-19 18:06 | NUR ---
SHIFT SUMMARY NO ACUTE CHANGES T/O SHIFT, A&O, COOPERATIVE. POTASSIUM LEVELS LOW THIS AM (2.6), IV POTASSIUM ORDERED, LEVELS RECHECKED AND NOW WNL. PT PLACED ON TELE DUE TO LOW POTASSIUM LEVELS THIS SHIFT. STILL REPORTING PAIN IN THE R FOOT, TREATED PER EMAR PRN. PT IS SOMEWHAT ANXIOUS AND STATES MENTALLY EXHAUSTED RELATED TO STRESSORS AT HOME. REMAINS ON HEPARIN DRIP, 13 U/KG/HR. CBG REMAIN ELEVATED, TREATED PER SLIDING SCALE. PT IS CURRENTLY LYING IN BED WATCHING TV AND EATING DINNER, CALL LIGHT WITHIN REACH. CALLS APPROPRIATELY AND INDEPENDENT TO BSC.
--- NOTE | 2021-01-19 22:16 | NUR ---
CBG 443 THIS EVENING. SCHEDULED COVERAGE OF 5 HUMALOG AND 30 OF SEMGLEE GIVEN. NOTIFIED DR. CHRISTOPHER. NO ADDITIONAL ORDERS AT THIS TIME.
[2021-01-20] MEDS ORDERED: NITRO-BID 2% TOP (04:47)
[2021-01-20 05:45] LABS: Hematocrit 29.8 % (33.0-51.0); Hemoglobin 9.8 g/dL (11.5-16.0)
--- NOTE | 2021-01-20 05:51 | NUR ---
SHIFT SUMMARY PT FATIGUED. PAINFUL W/ MOVEMENT. MEDICATED X 1 W/ ORDERED ROXICODONE. PT SLEPT OFF AND ON THROUGHOUT THE NIGHT. CBG 443 WITH HS CHECK. SCHEDULED HUMALOG AND SEMGLEE GIVEN. NOTIFIED DR. CHRISTOPHER WITH NO NEW ORDERS. PT HAS BEEN TRENDING THIS WAY, BEING UP IN THE 400'S AT HS AND COMING DOWN WELL WITH SCHEDULED INSULIN DOSING. SMALL WOUNDS TO R TOES NOTED. OPEN TO AIR. HEPARIN DRIP RUNNING AT 13 UNITS/KG/HR. TELEMETRY SINUS CAN MOSTLY IN THE MID 50'S. OCCASSIONALLY DIPS DOWN INTO THE HIGH 40'S. OTHERWISE, VITAL SIGNS STABLE. NO CHANGES THIS EVENING FROM PREVIOUS SHIFTS. WILL CONTINUE TO MONITOR.
[2021-01-20 05:57] LABS: Albumin, Blood 2.5 g/dL (3.4-5.0); Anion Gap 7 mmol/L (6-16); Blood Urea Nitrogen 51 mg/dL (8-24); CO2, Blood 27 mmol/L (21-32); Calcium, Blood 6.3 mg/dL (8.5-10.1); Chloride, Blood 112 mmol/L (98-108); Creatinine, Blood 2.04 mg/dL (0.40-1.00); Glomerular Filtration Rate 26 (60-); Glucose, Blood 282 mg/dL (70-99); Magnesium, Blood 1.7 mg/dL (1.6-2.4); Phosphorus, Blood 3.2 mg/dL (2.5-4.9); Potassium, Blood 3.6 mmol/L (3.5-5.5); Sodium, Blood 146 mmol/L (136-145)
[2021-01-20] MEDS ORDERED: ACET325 PO (14:58)
[2021-01-20] MEDS ORDERED: OXYC5 PO (15:06)
[2021-01-20] MEDS ORDERED: PANT20 PO (15:08)
[2021-01-20] MEDS ORDERED: PRED20 PO (15:09)
[2021-01-20] MEDS ORDERED: TRAZ50 PO (15:12)
[2021-01-20] MEDS ORDERED: VISBIOME 112.51 EACH PO (15:12)
--- NOTE | 2021-01-20 17:31 | NUR ---
DISCHARGE DISCHARGE MEDICATIONS AND INSTRUCTIONS EXPLAINED TO PATIENT. PATIENT STATED UNDERSTANDING. PCP AND NEPHROLOGY FOLLOW UP SCHEDULED. IV'S REMOVED WITHOUT ISSUE. BELONGINGS WITH PATIENT. PATIENT TRANSFERED TO PRIVATE VEHICLE VIA WHEELCHAIR.
== END 2021-01-20 17:33 | disposition home health service (06) | DRG 871 ==
LOC: ER 12:05 → ICUW 15:19 → MEDS 15:19 → ICUE 15:19 → MEDS 01-17 17:28
PROVIDERS: Emergency Medicine; Internal Medicine Nephrology; Pharmacist; ADMIT Internal Medicine
PROC: 3E033XZ Introduction of Vasopressor into Peripheral Vein, Percutaneous Approach (ICD-10-PCS; principal; 2021-01-15)
DX: A41.51 Sepsis due to Escherichia coli [E. coli] (principal); N17.0 Acute kidney failure with tubular necrosis; G92 Toxic encephalopathy; R57.1 Hypovolemic shock; R65.21 Severe sepsis with septic shock; N39.0 Urinary tract infection, site not specified; E87.2 Acidosis; E87.0 Hyperosmolality and hypernatremia; M10.9 Gout, unspecified; F32.9 Major depressive disorder, single episode, unspecified; I12.9 Hypertensive chronic kidney disease with stage 1 through stage 4 chronic kidney disease, or unspecified chronic kidney disease; Z96.651 Presence of right artificial knee joint; M81.0 Age-related osteoporosis without current pathological fracture; E11.22 Type 2 diabetes mellitus with diabetic chronic kidney disease; E88.09 Other disorders of plasma-protein metabolism, not elsewhere classified; E83.51 Hypocalcemia; I48.91 Unspecified atrial fibrillation; D63.1 Anemia in chronic kidney disease; N18.30 Chronic kidney disease, stage 3 unspecified; K52.9 Noninfective gastroenteritis and colitis, unspecified; D50.9 Iron deficiency anemia, unspecified; F41.9 Anxiety disorder, unspecified; Z21 Asymptomatic human immunodeficiency virus [HIV] infection status; K21.9 Gastro-esophageal reflux disease without esophagitis; E87.6 Hypokalemia; E83.42 Hypomagnesemia; B96.20 Unspecified Escherichia coli [E. coli] as the cause of diseases classified elsewhere; G40.909 Epilepsy, unspecified, not intractable, without status epilepticus; E11.51 Type 2 diabetes mellitus with diabetic peripheral angiopathy without gangrene; Z90.710 Acquired absence of both cervix and uterus; Z88.6 Allergy status to analgesic agent; Z88.2 Allergy status to sulfonamides; Z88.8 Allergy status to other drugs, medicaments and biological substances; Z98.84 Bariatric surgery status; Z98.890 Other specified postprocedural states; Z86.711 Personal history of pulmonary embolism; Z86.718 Personal history of other venous thrombosis and embolism; Z90.722 Acquired absence of ovaries, bilateral; Z90.79 Acquired absence of other genital organ(s); Z90.49 Acquired absence of other specified parts of digestive tract; Z90.89 Acquired absence of other organs; Z79.899 Other long term (current) drug therapy; Z79.01 Long term (current) use of anticoagulants; Z79.4 Long term (current) use of insulin
CPT/HCPCS: 36415; 36600; 51702; 70450; 71045; 74176; 80047; 80048; 80053; 80069; 81001; 82010; 82272; 82330; 82530; 82533; 82803; 82947; 83605; 83735; 83930; 84100; 84132; 84439; 84443; 84484; 85014; 85018; 85025; 85049; 85610; 85730; 86850; 86900; 86901; 87040; 87077; 87086; 87186; 93005; 93010; 93306; 96365-59; 96366-59; 96368; 96375-59; 96376-59; 97110; 97116; 97161; 97166; 97530; 97535; 99285-25; A9270; C9113; G0480; J0610; J0696; J1100; J1644; J1720; J1940; J2310; J2405; J3475; J3480; J7030; J7060; J7070

== ENCOUNTER 2021-01-25 14:37 | Emergency (ER) | payer OTHER ==
[~2021-01-25] VITALS: Ht 167.6 cm; Wt 66.7 kg
[~2021-01-25 14:37] MED LIST changes: +ACET325 PO; +BASAGLAR K100 UNIT/1; +NITRO-BID 2% TOP; +OXYC5 PO; +PANT20 PO; +PRED20 PO; +ROSUVASTATIN CA40 MG PO; +TRAZ50 PO; +VASCEPA1 G1 PO; +VISBIOME 112.51 EACH PO
[2021-01-25 15:20] LABS: BASOPHILS ABSOLUTE AUTO 0.01 K/mm3 (0.00-0.23); BASOPHILS PERCENT AUTO 0 % (0-2); EOSINOPHILS ABSOLUTE AUTO 0.16 K/mm3 (0.00-0.68); EOSINOPHILS PERCENT AUTO 2 % (0-6); Hematocrit 31.1 % (33.0-51.0); IMMATURE GRAN ABSOLUTE AUTO 0.04 K/mm3 (0.00-0.10); IMMATURE GRAN PERCENT AUTO 0 % (0-1); LYMPHOCYTES ABSOLUTE AUTO 1.07 K/mm3 (0.84-5.20); LYMPHOCYTES PERCENT AUTO 11 % (21-46); MONOCYTES ABSOLUTE AUTO 0.64 K/mm3 (0.16-1.47); MONOCYTES PERCENT AUTO 7 % (4-13); Mean Corpuscular HGB 33.1 pg (26.0-34.0); Mean Corpuscular HGB Conc 32.2 g/dL (31.5-36.5); Mean Corpuscular Volume 103 fL (80-100); Mean Platelet Volume 12.8 fL (9.1-12.4); NEUTROPHILS ABSOLUTE AUTO 7.61 K/mm3 (1.96-9.15); NEUTROPHILS PERCENT AUTO 80 % (41-73); Platelet Count 189 K/mm3 (150-400); RDW Coefficient Variation 15.7 % (11.7-14.2); RDW Standard Deviation 58.8 fL (35.1-46.3); Red Blood Cell Count 3.02 M/mm3 (3.80-5.20); White Blood Cell Count 9.53 K/mm3 (4.00-11.30)
[2021-01-25 15:45] LABS: Albumin, Blood 3.2 g/dL (3.4-5.0); Bilirubin, Total 0.3 mg/dL (0.1-1.0); Bun/Creatinine Ratio 19.8 (12.0-20.0); Calcium, Blood 6.5 mg/dL (8.5-10.1); Creatinine, Blood 1.16 mg/dL (0.40-1.00); Globulin, Blood 3.2 g/dL (2.2-4.0); Potassium, Blood 3.2 mmol/L (3.5-5.5); Total Protein, Blood 6.4 g/dL (6.4-8.2)
[2021-01-25] MEDS ORDERED: Monodox100 MG PO (17:07)
== END 2021-01-25 17:59 | disposition home or self-care (01) ==
LOC: ER 14:37
PROVIDERS: Physician Assistant
DX: L02.31 Cutaneous abscess of buttock (principal); R19.00 Intra-abdominal and pelvic swelling, mass and lump, unspecified site; I12.9 Hypertensive chronic kidney disease with stage 1 through stage 4 chronic kidney disease, or unspecified chronic kidney disease; E11.22 Type 2 diabetes mellitus with diabetic chronic kidney disease; N18.30 Chronic kidney disease, stage 3 unspecified; Z88.0 Allergy status to penicillin; Z88.2 Allergy status to sulfonamides; Z88.1 Allergy status to other antibiotic agents; Z88.8 Allergy status to other drugs, medicaments and biological substances; Z79.4 Long term (current) use of insulin; Z79.899 Other long term (current) drug therapy; Z87.891 Personal history of nicotine dependence
CPT/HCPCS: 10160; 36415; 80053; 85025; 99283-25

== ENCOUNTER 2021-02-18 21:47 | Emergency (ER) | payer OTHER ==
[~2021-02-18] VITALS: Ht 165.1 cm; Wt 62.1 kg
[~2021-02-18 21:47] MED LIST changes: +Monodox100 MG PO
[2021-02-18 22:24] LABS: BASOPHILS ABSOLUTE AUTO 0.06 K/mm3 (0.00-0.23); BASOPHILS PERCENT AUTO 1 % (0-2); EOSINOPHILS ABSOLUTE AUTO 0.12 K/mm3 (0.00-0.68); EOSINOPHILS PERCENT AUTO 2 % (0-6); Hematocrit 34.7 % (33.0-51.0); Hemoglobin 11.1 g/dL (11.5-16.0); IMMATURE GRAN ABSOLUTE AUTO 0.01 K/mm3 (0.00-0.10); IMMATURE GRAN PERCENT AUTO 0 % (0-1); LYMPHOCYTES ABSOLUTE AUTO 2.32 K/mm3 (0.84-5.20); LYMPHOCYTES PERCENT AUTO 35 % (21-46); MONOCYTES ABSOLUTE AUTO 0.51 K/mm3 (0.16-1.47); MONOCYTES PERCENT AUTO 8 % (4-13); Mean Corpuscular HGB 30.5 pg (26.0-34.0); Mean Corpuscular Volume 95 fL (80-100); Mean Platelet Volume 12.4 fL (9.1-12.4); NEUTROPHILS ABSOLUTE AUTO 3.68 K/mm3 (1.96-9.15); NEUTROPHILS PERCENT AUTO 55 % (41-73); Platelet Count 220 K/mm3 (150-400); RDW Coefficient Variation 14.3 % (11.7-14.2); RDW Standard Deviation 49.4 fL (35.1-46.3); Red Blood Cell Count 3.64 M/mm3 (3.80-5.20)
[2021-02-18 22:42] LABS: Albumin, Blood 3.4 g/dL (3.4-5.0); Bilirubin, Total 0.2 mg/dL (0.1-1.0); Bun/Creatinine Ratio 17.1 (12.0-20.0); Creatinine, Blood 1.4 mg/dL (0.40-1.00); Globulin, Blood 3.4 g/dL (2.2-4.0); Total Protein, Blood 6.8 g/dL (6.4-8.2)
[2021-02-18] MEDS ORDERED: TOPIRAMATE ER150 MG PO (23:22)
[2021-02-18] MEDS ORDERED: ABACAVIR-LAMIV1 EAC3 PO (23:26)
[2021-02-18] MEDS ORDERED: Prinivil10 MG PO (23:28)
[2021-02-18] MEDS ORDERED: BUMETANIDE2 M3 PO (23:29)
[2021-02-18] MEDS ORDERED: BASAGLAR K100 UNIT/3 SC (23:30)
[2021-02-18] MEDS ORDERED: TRULICITY1.5 MG/0.1 SC (23:31)
[2021-02-18] MEDS ORDERED: METFORMIN HCL500 M3 PO (23:32)
[2021-02-18] MEDS ORDERED: LYRICA PO (23:33)
[2021-02-18] MEDS ORDERED: PROZAC40 MG PO (23:35)
[2021-02-18] MEDS ORDERED: BUTALB-ACETAMI1 EAC7 PO (23:39)
== END 2021-02-19 00:05 | disposition home or self-care (01) ==
LOC: ER 21:47
PROVIDERS: Physician Assistant
DX: M79.671 Pain in right foot (principal); G89.29 Other chronic pain; Z79.02 Long term (current) use of antithrombotics/antiplatelets; Z79.899 Other long term (current) drug therapy
CPT/HCPCS: 36415; 73600; 80053; 85025; 85651; 96374; 99283-25; J2405

== ENCOUNTER → 2021-03-01 | Outpatient (CLI) | payer OTHER ==
[~2021-03-01] MED LIST changes: +ABACAVIR-LAMIV1 EAC3 PO; +ACET500 PO; +AIMOVIG AU70 MG/1 ML; +BASAGLAR K100 UNIT/3 SC; +BUMETANIDE2 M3 PO; +BUTALB-ACETAMI1 EAC7 PO; +CLIN300 PO; +DESV50 PO; +ELIQUIS2.5 MG PO; +HYDACE10B PO; +LIDO700A20 TOP; +LYRICA PO; +METFORMIN HCL500 M3 PO; +Magic Bullet10 MG PR; +Magnesium Citr296 ML PO; +PROZAC40 MG PO; +TOPIRAMATE ER150 MG PO; +TRULICITY1.5 MG/0.1 SC
== END | disposition home or self-care (01) ==
LOC: LAB SHORT 15:40
DX: L95.9 Vasculitis limited to the skin, unspecified (principal)
CPT/HCPCS: 87070; 87075; 87205

== ENCOUNTER 2021-03-07 15:20 | Emergency (ER) | payer OTHER ==
[~2021-03-07] VITALS: Ht 167.6 cm; Wt 59.0 kg
[~2021-03-07 15:20] MED LIST changes: -ACET500 PO; -AIMOVIG AU70 MG/1 ML; -CLIN300 PO; -DESV50 PO; -ELIQUIS2.5 MG PO; -HYDACE10B PO; -LIDO700A20 TOP; -Magic Bullet10 MG PR; -Magnesium Citr296 ML PO
[2021-03-07 15:58] LABS: BASOPHILS ABSOLUTE AUTO 0.05 K/mm3 (0.00-0.23); BASOPHILS PERCENT AUTO 1 % (0-2); EOSINOPHILS ABSOLUTE AUTO 0.06 K/mm3 (0.00-0.68); EOSINOPHILS PERCENT AUTO 1 % (0-6); Hematocrit 37.1 % (33.0-51.0); Hemoglobin 11.8 g/dL (11.5-16.0); IMMATURE GRAN ABSOLUTE AUTO 0.03 K/mm3 (0.00-0.10); IMMATURE GRAN PERCENT AUTO 0 % (0-1); LYMPHOCYTES PERCENT AUTO 14 % (21-46); MONOCYTES PERCENT AUTO 6 % (4-13); Mean Corpuscular HGB 28.9 pg (26.0-34.0); Mean Corpuscular HGB Conc 31.8 g/dL (31.5-36.5); Mean Corpuscular Volume 91 fL (80-100); Mean Platelet Volume 11.9 fL (9.1-12.4); NEUTROPHILS ABSOLUTE AUTO 6.05 K/mm3 (1.96-9.15); NEUTROPHILS PERCENT AUTO 78 % (41-73); Platelet Count 235 K/mm3 (150-400); RDW Coefficient Variation 14.8 % (11.7-14.2); RDW Standard Deviation 49.8 fL (35.1-46.3); Red Blood Cell Count 4.09 M/mm3 (3.80-5.20); White Blood Cell Count 7.79 K/mm3 (4.00-11.30)
[2021-03-07 16:17] LABS: Alanine Aminotransfer (ALT/SGP 209 U/L (12-78); Albumin, Blood 3.3 g/dL (3.4-5.0); Albumin/Globulin Ratio 0.9 (0.8-1.8); Alk Phos 113 U/L (50-136); Anion Gap 9 mmol/L (6-16); Aspartate Aminotrans (AST/SGOT 205 U/L (12-37); Bilirubin, Total 0.3 mg/dL (0.1-1.0); Blood Urea Nitrogen 21 mg/dL (8-24); Bun/Creatinine Ratio 21.6 (12.0-20.0); CO2, Blood 20 mmol/L (21-32); Calcium, Blood 8.4 mg/dL (8.5-10.1); Chloride, Blood 111 mmol/L (98-108); Creatinine, Blood 0.97 mg/dL (0.40-1.00); Globulin, Blood 3.7 g/dL (2.2-4.0); Glomerular Filtration Rate >60 (60-); Glucose, Blood 231 mg/dL (70-99); Potassium, Blood 3.6 mmol/L (3.5-5.5); Sodium, Blood 140 mmol/L (136-145)
== END 2021-03-07 20:35 | disposition home or self-care (01) ==
LOC: ER 15:20
PROVIDERS: Physician Assistant
DX: E11.51 Type 2 diabetes mellitus with diabetic peripheral angiopathy without gangrene (principal); E78.5 Hyperlipidemia, unspecified; I12.9 Hypertensive chronic kidney disease with stage 1 through stage 4 chronic kidney disease, or unspecified chronic kidney disease; E11.22 Type 2 diabetes mellitus with diabetic chronic kidney disease; N18.30 Chronic kidney disease, stage 3 unspecified; I48.91 Unspecified atrial fibrillation; Z88.6 Allergy status to analgesic agent; Z88.2 Allergy status to sulfonamides; Z87.891 Personal history of nicotine dependence
CPT/HCPCS: 36415; 70450; 80053; 84484; 85025; 93005; 93010; 99285-25; J7030

== ENCOUNTER 2021-03-17 01:41 | Day surgery (SDC) | payer OTHER ==
[2021-03-18] MEDS ORDERED: CLIN300 PO ×2 (22:10→22:16)
== END 2021-03-17 23:40 | disposition home or self-care (01) ==
LOC: WOUND 01:41
DX: L95.9 Vasculitis limited to the skin, unspecified (principal); I73.9 Peripheral vascular disease, unspecified; I87.2 Venous insufficiency (chronic) (peripheral); E11.621 Type 2 diabetes mellitus with foot ulcer; L97.519 Non-pressure chronic ulcer of other part of right foot with unspecified severity; I10 Essential (primary) hypertension; Z87.891 Personal history of nicotine dependence; Z88.6 Allergy status to analgesic agent; Z88.2 Allergy status to sulfonamides; Z88.8 Allergy status to other drugs, medicaments and biological substances
CPT/HCPCS: G0463

== ENCOUNTER 2021-03-18 18:11 | Emergency (ER) | payer OTHER ==
[~2021-03-18] VITALS: Ht 167.6 cm; Wt 55.3 kg
[2021-03-18 21:20] LABS: BASOPHILS PERCENT AUTO 1 % (0-2); EOSINOPHILS PERCENT AUTO 1 % (0-6); Hemoglobin 11.8 g/dL (11.5-16.0); IMMATURE GRAN ABSOLUTE AUTO 0.08 K/mm3 (0.00-0.10); IMMATURE GRAN PERCENT AUTO 1 % (0-1); LYMPHOCYTES ABSOLUTE AUTO 1.89 K/mm3 (0.84-5.20); LYMPHOCYTES PERCENT AUTO 15 % (21-46); MONOCYTES ABSOLUTE AUTO 0.74 K/mm3 (0.16-1.47); MONOCYTES PERCENT AUTO 6 % (4-13); Mean Corpuscular HGB 28.1 pg (26.0-34.0); Mean Corpuscular HGB Conc 31.9 g/dL (31.5-36.5); Mean Corpuscular Volume 88 fL (80-100); Mean Platelet Volume 11.9 fL (9.1-12.4); NEUTROPHILS ABSOLUTE AUTO 9.83 K/mm3 (1.96-9.15); NEUTROPHILS PERCENT AUTO 77 % (41-73); Platelet Count 394 K/mm3 (150-400); RDW Coefficient Variation 14.9 % (11.7-14.2); RDW Standard Deviation 48.1 fL (35.1-46.3); White Blood Cell Count 12.74 K/mm3 (4.00-11.30)
[2021-03-18 21:42] LABS: Alanine Aminotransfer (ALT/SGP 45 U/L (12-78); Albumin, Blood 3.4 g/dL (3.4-5.0); Albumin/Globulin Ratio 0.9 (0.8-1.8); Alk Phos 108 U/L (50-136); Anion Gap 12 mmol/L (6-16); Aspartate Aminotrans (AST/SGOT 37 U/L (12-37); Bilirubin, Total 0.3 mg/dL (0.1-1.0); Blood Urea Nitrogen 26 mg/dL (8-24); Bun/Creatinine Ratio 21.7 (12.0-20.0); CO2, Blood 21 mmol/L (21-32); Calcium, Blood 8.7 mg/dL (8.5-10.1); Chloride, Blood 102 mmol/L (98-108); Globulin, Blood 3.6 g/dL (2.2-4.0); Glomerular Filtration Rate 45 (60-); Glucose, Blood 248 mg/dL (70-99); Sodium, Blood 135 mmol/L (136-145); Troponin I <0.015 ng/mL (0.000-0.040)
[2021-03-18] MEDS ORDERED: CLIN300 PO ×2 (22:10→22:16)
== END 2021-03-18 23:05 | disposition home or self-care (01) ==
LOC: ER 18:11
PROVIDERS: Student in an Organized Health Care Education/Training Program
DX: S70.01XA Contusion of right hip, initial encounter (principal); L03.115 Cellulitis of right lower limb; E78.5 Hyperlipidemia, unspecified; E11.22 Type 2 diabetes mellitus with diabetic chronic kidney disease; I12.9 Hypertensive chronic kidney disease with stage 1 through stage 4 chronic kidney disease, or unspecified chronic kidney disease; N18.30 Chronic kidney disease, stage 3 unspecified; I48.91 Unspecified atrial fibrillation; Z88.2 Allergy status to sulfonamides; Z88.1 Allergy status to other antibiotic agents; Z88.8 Allergy status to other drugs, medicaments and biological substances; Z79.899 Other long term (current) drug therapy; W01.198A Fall on same level from slipping, tripping and stumbling with subsequent striking against other object, initial encounter
CPT/HCPCS: 36415; 70450; 71045; 72170; 80053; 84484; 85025; 93005; 93010; 99284-25; A9270

== ENCOUNTER 2021-03-31 00:52 | Day surgery (SDC) | payer OTHER ==
[~2021-03-31 00:52] MED LIST changes: +CLIN300 PO
== END 2021-03-31 22:46 | disposition home or self-care (01) ==
LOC: WOUND 00:52
DX: E11.621 Type 2 diabetes mellitus with foot ulcer (principal); L97.519 Non-pressure chronic ulcer of other part of right foot with unspecified severity; L95.9 Vasculitis limited to the skin, unspecified; I73.9 Peripheral vascular disease, unspecified; I87.2 Venous insufficiency (chronic) (peripheral)
CPT/HCPCS: A9270; G0463

== ENCOUNTER → 2021-04-01 | Outpatient (CLI) | payer OTHER ==
[~2021-04-01] MED LIST changes: +ACET500 PO; +AIMOVIG AU70 MG/1 ML; +DESV50 PO; +ELIQUIS2.5 MG PO; +HYDACE10B PO; +LIDO700A20 TOP; +Magic Bullet10 MG PR; +Magnesium Citr296 ML PO
[2021-04-01 14:16] LABS: Bun/Creatinine Ratio 34.3 (12.0-20.0); Calcium, Blood 8.9 mg/dL (8.5-10.1); Creatinine, Blood 1.37 mg/dL (0.40-1.00); Potassium, Blood 4.2 mmol/L (3.5-5.5)
== END | disposition home or self-care (01) ==
LOC: LAB SHORT 10:10 → EDSTATUS 03-24 12:15 → LAB FUT 03-24 12:15
PROVIDERS: Nurse Practitioner Family
DX: E78.5 Hyperlipidemia, unspecified (principal)
CPT/HCPCS: 80048

== ENCOUNTER 2021-04-02 12:51 | Emergency (ER) | payer OTHER ==
[~2021-04-02] VITALS: Ht 167.6 cm; Wt 59.0 kg
[~2021-04-02 12:51] MED LIST changes: -ACET500 PO; -AIMOVIG AU70 MG/1 ML; -DESV50 PO; -ELIQUIS2.5 MG PO; -HYDACE10B PO; -LIDO700A20 TOP; -Magic Bullet10 MG PR; -Magnesium Citr296 ML PO
[2021-04-02 15:00] LABS: BASOPHILS ABSOLUTE AUTO 0.06 K/mm3 (0.00-0.23); BASOPHILS PERCENT AUTO 1 % (0-2); EOSINOPHILS PERCENT AUTO 1 % (0-6); Hematocrit 33.5 % (33.0-51.0); Hemoglobin 10.7 g/dL (11.5-16.0); IMMATURE GRAN ABSOLUTE AUTO 0.03 K/mm3 (0.00-0.10); IMMATURE GRAN PERCENT AUTO 0 % (0-1); LYMPHOCYTES ABSOLUTE AUTO 1.01 K/mm3 (0.84-5.20); LYMPHOCYTES PERCENT AUTO 12 % (21-46); MONOCYTES ABSOLUTE AUTO 0.24 K/mm3 (0.16-1.47); MONOCYTES PERCENT AUTO 3 % (4-13); Mean Corpuscular HGB 28.8 pg (26.0-34.0); Mean Corpuscular HGB Conc 31.9 g/dL (31.5-36.5); Mean Corpuscular Volume 90 fL (80-100); Mean Platelet Volume 11.4 fL (9.1-12.4); NEUTROPHILS ABSOLUTE AUTO 6.88 K/mm3 (1.96-9.15); NEUTROPHILS PERCENT AUTO 83 % (41-73); Platelet Count 250 K/mm3 (150-400); RDW Coefficient Variation 18.1 % (11.7-14.2); RDW Standard Deviation 59.4 fL (35.1-46.3); Red Blood Cell Count 3.71 M/mm3 (3.80-5.20); White Blood Cell Count 8.32 K/mm3 (4.00-11.30)
[2021-04-02] MEDS ORDERED: ACET500 PO (15:12)
[2021-04-02] MEDS ORDERED: Crestor20 MG PO (15:13)
[2021-04-02] MEDS ORDERED: AIMOVIG AU70 MG/1 ML (15:13)
[2021-04-02] MEDS ORDERED: ELIQUIS2.5 MG PO (15:15)
[2021-04-02] MEDS ORDERED: FEBU40TA PO (15:16)
[2021-04-02] MEDS ORDERED: HYDACE10B PO (15:17)
[2021-04-02] MEDS ORDERED: POTA10T PO (15:18)
[2021-04-02] MEDS ORDERED: TRAZ50 PO (15:19)
[2021-04-02] MEDS ORDERED: PANT20 PO (15:19)
[2021-04-02] MEDS ORDERED: DESV50 PO (15:20)
[2021-04-02 15:29] LABS: Albumin, Blood 3.4 g/dL (3.4-5.0); Albumin/Globulin Ratio 1.1 (0.8-1.8); Bilirubin, Total 0.3 mg/dL (0.1-1.0); Bun/Creatinine Ratio 38.5 (12.0-20.0); Calcium, Blood 8.6 mg/dL (8.5-10.1); Creatinine, Blood 1.09 mg/dL (0.40-1.00); Globulin, Blood 3.2 g/dL (2.2-4.0); Potassium, Blood 4.1 mmol/L (3.5-5.5); Total Protein, Blood 6.6 g/dL (6.4-8.2)
[2021-04-02] MEDS ORDERED: LIDO700A20 TOP (15:58)
[2021-04-02] MEDS ORDERED: Magnesium Citr296 ML PO (15:58)
[2021-04-02] MEDS ORDERED: Magic Bullet10 MG PR (15:58)
== END 2021-04-02 16:15 | disposition home or self-care (01) ==
LOC: ER 12:51
PROVIDERS: Emergency Medicine
DX: E11.51 Type 2 diabetes mellitus with diabetic peripheral angiopathy without gangrene (principal); E11.22 Type 2 diabetes mellitus with diabetic chronic kidney disease; I12.9 Hypertensive chronic kidney disease with stage 1 through stage 4 chronic kidney disease, or unspecified chronic kidney disease; N18.30 Chronic kidney disease, stage 3 unspecified; I48.91 Unspecified atrial fibrillation; Z87.891 Personal history of nicotine dependence
CPT/HCPCS: 36415; 80053; 85025; 96374; 96375; 99283-25; J2270; J2405

== ENCOUNTER 2021-04-07 02:16 | Day surgery (SDC) | payer OTHER ==
[~2021-04-07 02:16] MED LIST changes: +ACET500 PO; +AIMOVIG AU70 MG/1 ML; +DESV50 PO; +ELIQUIS2.5 MG PO; +HYDACE10B PO; +LIDO700A20 TOP; +Magic Bullet10 MG PR; +Magnesium Citr296 ML PO
[2021-04-12] MEDS ORDERED: HAIR, SKIN AND1 EAC3 PO (15:08)
[2021-04-12] MEDS ORDERED: OMEGA-3 + VITA1 EACH PO (15:09)
[2021-04-12] MEDS ORDERED: Nitroglycerin1 EAC3 TOP (15:09)
[2021-04-12] MEDS ORDERED: LYRICA150 M1 PT (15:10)
[2021-04-12] MEDS ORDERED: Hydrocodone-Ap1 EA26 PO (15:11)
[2021-04-12] MEDS ORDERED: Prozac40 MG PO (15:12)
[2021-04-12] MEDS ORDERED: CYAN1000I (15:13)
[2021-04-12] MEDS ORDERED: B-121000 MC3 PO (15:14)
[2021-04-12] MEDS ORDERED: VITAMIN D310 MC4 PO (15:14)
[2021-04-12] MEDS ORDERED: Vitamin B-Comp1 EACH PO (15:15)
[2021-04-12] MEDS ORDERED: BUME2 PO (15:15)
== END 2021-04-07 22:42 | disposition home or self-care (01) ==
LOC: WOUND 02:16
DX: E11.621 Type 2 diabetes mellitus with foot ulcer (principal); L97.519 Non-pressure chronic ulcer of other part of right foot with unspecified severity; L95.9 Vasculitis limited to the skin, unspecified; I87.2 Venous insufficiency (chronic) (peripheral); I10 Essential (primary) hypertension; E11.51 Type 2 diabetes mellitus with diabetic peripheral angiopathy without gangrene; Z87.891 Personal history of nicotine dependence
CPT/HCPCS: G0463

== ENCOUNTER 2021-04-13 10:06 | Day surgery (SDC) | payer OTHER ==
[~2021-04-13] VITALS: Ht 167.6 cm; Wt 55.0 kg
[~2021-04-13 10:06] MED LIST changes: +B-121000 MC3 PO; +CYAN1000I; +HAIR, SKIN AND1 EAC3 PO; +Hydrocodone-Ap1 EA26 PO; +LYRICA150 M1 PT; +Nitroglycerin1 EAC3 TOP; +OMEGA-3 + VITA1 EACH PO; +VITAMIN D310 MC4 PO; +Vitamin B-Comp1 EACH PO
== END 2021-04-13 23:13 | disposition home or self-care (01) ==
LOC: MHTC 10:06
DX: E11.52 Type 2 diabetes mellitus with diabetic peripheral angiopathy with gangrene (principal); I70.213 Atherosclerosis of native arteries of extremities with intermittent claudication, bilateral legs; I48.91 Unspecified atrial fibrillation; I10 Essential (primary) hypertension; Z87.891 Personal history of nicotine dependence; Z88.1 Allergy status to other antibiotic agents; Z88.8 Allergy status to other drugs, medicaments and biological substances
CPT/HCPCS: 36247; 37211; 75716; 75774; 76937; 82947; 99152; 99153; C1760; C1769; C1887; C1894; J2250; J2997; J3010; J7030; J7040; J7050; Q9967

== ENCOUNTER 2021-04-18 06:19 | Day surgery (SDC) | payer OTHER ==
[~2021-04-18] VITALS: Ht 167.6 cm; Wt 55.0 kg
--- NOTE | 2021-04-18 16:55 | NUR ---
PT TAKEN OFF BEDPAN. PT WAS ABLE TO URINATE ABOUT 250mL OF BRIGHT YELLOW URINE.
--- NOTE | 2021-04-18 17:11 | NUR ---
PT WITH NOTED OOZING ON SEVERO DRESSING. PROVIDER NOTIFIED AND STATES SITE LOOKS GOOD AND TO JUST HOLD "LITTLE PRESSURE FOR ABOUT A MINUTE." LIGHT PRESSURE HELD FOR A MINUTE. BLOOD TRACED AND TIMED ON SEVERO DRESSING. NO LARGE HEMATOMA IS CURRENTLY NOTED. THERE IS A SMALL GOLF BALL SIZED LUMP PALPATED JUST ABOVE THE SEVERO DRESSING. WILL CONTINUE TO MONITOR. PT DENIES ANY PAIN BUT REPORTS SOME TENDERNESS. VSS.
--- NOTE | 2021-04-18 17:25 | NUR ---
OOZING NOTED ON SEVERO DRESSING BUT THERE IS NO NOTED HEMATOMA AT THIS TIME. AND NO CHANGE IN THE NOTED LUMP. WILL CONTINUE TO MONIOR.
--- NOTE | 2021-04-18 17:50 | NUR ---
PT CONTINUES TO OOZE FROM SITE. SEVERO DRESSING SATURATED. NEW SEVERO DRESSING APPLIED AND MEDIUM PRESSURE APPLIED FOR 5 MINS. NO NOTED CHANGE IN PREVIOUS LUMP UNDER ACCESS SITE AND NO NOTED LARGE HEMATOMA NOTED AT THIS TIME. PT DENIES ANY PAIN BUT CONTINUES TO REPORT TENDERNESS. VSS. WILL CONTINUE TO MONITOR.
--- NOTE | 2021-04-18 18:10 | NUR ---
PT CONTINUES TO OOZE FROM SITE. MANUAL PRESSURE HELD FOR 15MINS. SITE STOPPED OOZING AT THIS TIME. NEW SEVERO DRESSING APPLIED TO SITE. WILL CONTINUE TO MONITOR. VSS. PT DENIES ANY PAIN.
--- NOTE | 2021-04-18 18:43 | NUR ---
NO BLEEDING, OOZING OR HEMATOMA NOTED AT SITE. PTS HEAD OF THE BED ELEVATED TO 30 DEGREES. PT EATING DINNER AND WATCHING TV. PT DENIES ANY PAIN. VSS. WILL CONTINUE TO MONITOR.
--- NOTE | 2021-04-18 19:14 | NUR ---
LEFT FEMORAL GROIN SITE SOFT, NON-TENDER WITH NO HEMATOMA, NO PULSATILE BLEEDING AND INTACT DRESSING. PT IS NOW OFF BED SEARS AND CONTINUING TO EAT. CALL LIGHT IN REACH.
--- NOTE | 2021-04-18 19:19 | NUR ---
HOB UP TO 45 DEGREES. LEFT GROIN SITE SOFT NON-TENDER WITH NO HEMATOMA, NO PULSATILE BLEEDING AND INTACT CANNULA. PT WATCHING TV.
--- NOTE | 2021-04-18 19:49 | NUR ---
20 G IV DISCONTINUED FROM LEFT AC WITH INTACT CANNULA. PT WILL BE ESCORTED OUT BY ARSENIO HAGEN VIA WHEELCHAIR.
== END 2021-04-18 19:50 | disposition home or self-care (01) ==
LOC: MHTC 06:19
DX: E11.52 Type 2 diabetes mellitus with diabetic peripheral angiopathy with gangrene (principal); I70.261 Atherosclerosis of native arteries of extremities with gangrene, right leg; I70.222 Atherosclerosis of native arteries of extremities with rest pain, left leg; I10 Essential (primary) hypertension; E78.5 Hyperlipidemia, unspecified; I48.91 Unspecified atrial fibrillation; M10.9 Gout, unspecified; Z21 Asymptomatic human immunodeficiency virus [HIV] infection status; Z86.718 Personal history of other venous thrombosis and embolism; Z86.711 Personal history of pulmonary embolism; Z96.651 Presence of right artificial knee joint; Z87.891 Personal history of nicotine dependence; Z88.8 Allergy status to other drugs, medicaments and biological substances; Z88.5 Allergy status to narcotic agent; Z88.6 Allergy status to analgesic agent; Z88.2 Allergy status to sulfonamides; Z91.02 Food additives allergy status; Z79.01 Long term (current) use of anticoagulants; Z79.02 Long term (current) use of antithrombotics/antiplatelets; Z79.4 Long term (current) use of insulin
CPT/HCPCS: 37211; 37229; 37233; 75710; 75774; 76937; 85347; 99152; 99153; C1725; C1760; C1769; C1885; C1887; C1894; J1644; J2250; J2997; J3010; J7030; J7040; J7050; Q9967

== ENCOUNTER 2021-04-26 02:13 | Day surgery (SDC) | payer OTHER | END 2021-04-26 23:00 | disposition home or self-care (01) | LOC: WOUND 02:13 | DX: E11.621 Type 2 diabetes mellitus with foot ulcer (principal); L97.519 Non-pressure chronic ulcer of other part of right foot with unspecified severity; L95.9 Vasculitis limited to the skin, unspecified; M79.671 Pain in right foot; E11.51 Type 2 diabetes mellitus with diabetic peripheral angiopathy without gangrene; I87.2 Venous insufficiency (chronic) (peripheral); Z88.2 Allergy status to sulfonamides; Z88.6 Allergy status to analgesic agent; Z88.8 Allergy status to other drugs, medicaments and biological substances | CPT/HCPCS: 73630; G0463 ==

== ENCOUNTER 2021-05-04 00:33 | Day surgery (SDC) | payer OTHER | END 2021-05-05 23:33 | disposition home or self-care (01) | LOC: WOUND 00:33 | DX: L95.9 Vasculitis limited to the skin, unspecified (principal); I73.9 Peripheral vascular disease, unspecified; I87.2 Venous insufficiency (chronic) (peripheral); M79.671 Pain in right foot | CPT/HCPCS: A9270 ==

== ENCOUNTER 2021-05-11 01:20 | Day surgery (SDC) | payer OTHER | END 2021-05-11 23:04 | disposition home or self-care (01) | LOC: WOUND 01:20 | DX: L95.9 Vasculitis limited to the skin, unspecified (principal); L97.519 Non-pressure chronic ulcer of other part of right foot with unspecified severity; I73.9 Peripheral vascular disease, unspecified; I87.2 Venous insufficiency (chronic) (peripheral); M79.671 Pain in right foot | CPT/HCPCS: G0463 ==

== ENCOUNTER 2021-05-12 08:32 | Inpatient (IN) | payer OTHER ==
[~2021-05-12] VITALS: Ht 170 cm; Wt 59.0 kg
[2021-05-12 19:22] LABS: Hematocrit 25.2 % (33.0-51.0)
[2021-05-12 20:15] LABS: International Normalized Ratio 1.22
[2021-05-12 22:49] LABS: Source, Urine Catheter
[2021-05-12 22:52] LABS: Bilirubin, Urine Neg (Neg); Blood, Urine 1+ (Neg); Glucose Qualitative, Urine 3+ (Neg); Ketones, Urine 3+ (Neg); Leukocyte Esterase, Urine Neg (Neg); Nitrite, Urine Pos (Neg); Protein, Urine 3+ (Neg); Specific Gravity, Urine 1.015 (1.003-1.022); Urobilinogen, Urine NORM (Normal)
[2021-05-12 22:56] LABS: Appearance, Urine Clear (Clear); Color, Urine Yellow (P-Yellow)
[2021-05-12 22:57] LABS: Bacteria Many /hpf; Red Blood Cells, Urine 0-2 /hpf (0-2); Squamous Epithelial Cells Few /hpf (Few)
[2021-05-13 14:26] LABS: Hematocrit 18.5 % (33.0-51.0)
[2021-05-13 14:35] LABS: Hemoglobin 5.7 g/dL (11.5-16.0)
[2021-05-13 21:01] LABS: Hematocrit 25.4 % (33.0-51.0); Hemoglobin 8.3 g/dL (11.5-16.0)
[2021-05-14 05:49] LABS: BASOPHILS ABSOLUTE AUTO 0.05 K/mm3 (0.00-0.23); BASOPHILS PERCENT AUTO 1 % (0-2); EOSINOPHILS ABSOLUTE AUTO 0.19 K/mm3 (0.00-0.68); EOSINOPHILS PERCENT AUTO 3 % (0-6); Hematocrit 21.3 % (33.0-51.0); Hemoglobin 6.9 g/dL (11.5-16.0); IMMATURE GRAN ABSOLUTE AUTO 0.02 K/mm3 (0.00-0.10); IMMATURE GRAN PERCENT AUTO 0 % (0-1); LYMPHOCYTES ABSOLUTE AUTO 1.69 K/mm3 (0.84-5.20); LYMPHOCYTES PERCENT AUTO 22 % (21-46); MONOCYTES ABSOLUTE AUTO 0.77 K/mm3 (0.16-1.47); MONOCYTES PERCENT AUTO 10 % (4-13); Mean Corpuscular HGB 28.8 pg (26.0-34.0); Mean Corpuscular HGB Conc 32.4 g/dL (31.5-36.5); Mean Corpuscular Volume 89 fL (80-100); Mean Platelet Volume 11.8 fL (9.1-12.4); NEUTROPHILS ABSOLUTE AUTO 4.92 K/mm3 (1.96-9.15); NEUTROPHILS PERCENT AUTO 64 % (41-73); Platelet Count 195 K/mm3 (150-400); RDW Coefficient Variation 18.2 % (11.7-14.2); RDW Standard Deviation 59.5 fL (35.1-46.3); White Blood Cell Count 7.64 K/mm3 (4.00-11.30)
[2021-05-14 06:09] LABS: Anion Gap 6 mmol/L (6-16); Blood Urea Nitrogen 30 mg/dL (8-24); Bun/Creatinine Ratio 46.8 (12.0-20.0); CO2, Blood 23 mmol/L (21-32); Calcium, Blood 6.6 mg/dL (8.5-10.1); Chloride, Blood 115 mmol/L (98-108); Creatinine, Blood 0.64 mg/dL (0.40-1.00); Glomerular Filtration Rate >60 (60-); Glucose, Blood 239 mg/dL (70-99); Potassium, Blood 3.2 mmol/L (3.5-5.5); Sodium, Blood 144 mmol/L (136-145)
[2021-05-14 08:37] LABS: Hematocrit 22.1 % (33.0-51.0); Hemoglobin 7.2 g/dL (11.5-16.0)
[2021-05-14 15:59] LABS: Hematocrit 20.2 % (33.0-51.0); Hemoglobin 6.7 g/dL (11.5-16.0)
[2021-05-14 23:51] LABS: Hematocrit 16.7 % (33.0-51.0); Hemoglobin 5.4 g/dL (11.5-16.0)
[2021-05-15 04:45] LABS: BASOPHILS ABSOLUTE AUTO 0.05 K/mm3 (0.00-0.23); BASOPHILS PERCENT AUTO 1 % (0-2); EOSINOPHILS ABSOLUTE AUTO 0.28 K/mm3 (0.00-0.68); EOSINOPHILS PERCENT AUTO 3 % (0-6); Hematocrit 20.4 % (33.0-51.0); Hemoglobin 6.7 g/dL (11.5-16.0); IMMATURE GRAN ABSOLUTE AUTO 0.04 K/mm3 (0.00-0.10); IMMATURE GRAN PERCENT AUTO 0 % (0-1); LYMPHOCYTES ABSOLUTE AUTO 2.25 K/mm3 (0.84-5.20); LYMPHOCYTES PERCENT AUTO 21 % (21-46); MONOCYTES ABSOLUTE AUTO 0.77 K/mm3 (0.16-1.47); MONOCYTES PERCENT AUTO 7 % (4-13); Mean Corpuscular HGB 29.4 pg (26.0-34.0); Mean Corpuscular HGB Conc 32.8 g/dL (31.5-36.5); Mean Corpuscular Volume 90 fL (80-100); Mean Platelet Volume 11.6 fL (9.1-12.4); NEUTROPHILS ABSOLUTE AUTO 7.14 K/mm3 (1.96-9.15); NEUTROPHILS PERCENT AUTO 68 % (41-73); Platelet Count 165 K/mm3 (150-400); RDW Coefficient Variation 16.5 % (11.7-14.2); RDW Standard Deviation 53.1 fL (35.1-46.3); Red Blood Cell Count 2.28 M/mm3 (3.80-5.20); White Blood Cell Count 10.53 K/mm3 (4.00-11.30)
[2021-05-15 05:05] LABS: Anion Gap 4 mmol/L (6-16); Blood Urea Nitrogen 38 mg/dL (8-24); Bun/Creatinine Ratio 50.5 (12.0-20.0); CO2, Blood 23 mmol/L (21-32); Calcium, Blood 7.1 mg/dL (8.5-10.1); Chloride, Blood 115 mmol/L (98-108); Creatinine, Blood 0.75 mg/dL (0.40-1.00); Glomerular Filtration Rate >60 (60-); Glucose, Blood 210 mg/dL (70-99); Potassium, Blood 4.8 mmol/L (3.5-5.5); Sodium, Blood 142 mmol/L (136-145)
[2021-05-15 14:44] LABS: Hematocrit 22.4 % (33.0-51.0); Hemoglobin 7.3 g/dL (11.5-16.0)
[2021-05-15 22:19] LABS: Hematocrit 20.6 % (33.0-51.0)
[2021-05-16 04:34] LABS: BASOPHILS ABSOLUTE AUTO 0.05 K/mm3 (0.00-0.23); BASOPHILS PERCENT AUTO 1 % (0-2); EOSINOPHILS PERCENT AUTO 2 % (0-6); Hematocrit 19.7 % (33.0-51.0); Hemoglobin 6.7 g/dL (11.5-16.0); IMMATURE GRAN ABSOLUTE AUTO 0.04 K/mm3 (0.00-0.10); IMMATURE GRAN PERCENT AUTO 1 % (0-1); LYMPHOCYTES ABSOLUTE AUTO 1.62 K/mm3 (0.84-5.20); LYMPHOCYTES PERCENT AUTO 19 % (21-46); MONOCYTES ABSOLUTE AUTO 0.45 K/mm3 (0.16-1.47); MONOCYTES PERCENT AUTO 5 % (4-13); Mean Corpuscular Volume 88 fL (80-100); Mean Platelet Volume 11.6 fL (9.1-12.4); NEUTROPHILS ABSOLUTE AUTO 6.36 K/mm3 (1.96-9.15); NEUTROPHILS PERCENT AUTO 73 % (41-73); Platelet Count 155 K/mm3 (150-400); RDW Coefficient Variation 17.2 % (11.7-14.2); Red Blood Cell Count 2.23 M/mm3 (3.80-5.20); White Blood Cell Count 8.72 K/mm3 (4.00-11.30)
[2021-05-16 04:54] LABS: Anion Gap 6 mmol/L (6-16); Blood Urea Nitrogen 35 mg/dL (8-24); Bun/Creatinine Ratio 53.6 (12.0-20.0); CO2, Blood 21 mmol/L (21-32); Calcium, Blood 7.5 mg/dL (8.5-10.1); Chloride, Blood 112 mmol/L (98-108); Creatinine, Blood 0.65 mg/dL (0.40-1.00); Glomerular Filtration Rate >60 (60-); Glucose, Blood 200 mg/dL (70-99); Potassium, Blood 4.1 mmol/L (3.5-5.5); Sodium, Blood 139 mmol/L (136-145)
[2021-05-16 09:58] LABS: Hematocrit 25.5 % (33.0-51.0); Hemoglobin 8.6 g/dL (11.5-16.0)
[2021-05-16 20:14] LABS: Hematocrit 26.8 % (33.0-51.0); Hemoglobin 9.3 g/dL (11.5-16.0)
[2021-05-17 04:38] LABS: BASOPHILS ABSOLUTE AUTO 0.06 K/mm3 (0.00-0.23); BASOPHILS PERCENT AUTO 1 % (0-2); EOSINOPHILS ABSOLUTE AUTO 0.27 K/mm3 (0.00-0.68); EOSINOPHILS PERCENT AUTO 4 % (0-6); Hematocrit 27.9 % (33.0-51.0); Hemoglobin 9.3 g/dL (11.5-16.0); IMMATURE GRAN ABSOLUTE AUTO 0.06 K/mm3 (0.00-0.10); IMMATURE GRAN PERCENT AUTO 1 % (0-1); LYMPHOCYTES ABSOLUTE AUTO 1.68 K/mm3 (0.84-5.20); LYMPHOCYTES PERCENT AUTO 22 % (21-46); MONOCYTES ABSOLUTE AUTO 0.46 K/mm3 (0.16-1.47); MONOCYTES PERCENT AUTO 6 % (4-13); Mean Corpuscular HGB 29.3 pg (26.0-34.0); Mean Corpuscular HGB Conc 33.3 g/dL (31.5-36.5); Mean Corpuscular Volume 88 fL (80-100); Mean Platelet Volume 11.8 fL (9.1-12.4); NEUTROPHILS ABSOLUTE AUTO 5.17 K/mm3 (1.96-9.15); NEUTROPHILS PERCENT AUTO 67 % (41-73); Platelet Count 190 K/mm3 (150-400); RDW Coefficient Variation 16.4 % (11.7-14.2); RDW Standard Deviation 50.4 fL (35.1-46.3); Red Blood Cell Count 3.17 M/mm3 (3.80-5.20)
[2021-05-17 05:02] LABS: Alanine Aminotransfer (ALT/SGP 14 U/L (12-78); Albumin/Globulin Ratio 0.7 (0.8-1.8); Alk Phos 46 U/L (50-136); Anion Gap 4 mmol/L (6-16); Aspartate Aminotrans (AST/SGOT 10 U/L (12-37); Bilirubin, Total 0.3 mg/dL (0.1-1.0); Blood Urea Nitrogen 30 mg/dL (8-24); Bun/Creatinine Ratio 39.1 (12.0-20.0); CO2, Blood 28 mmol/L (21-32); Calcium, Blood 8.2 mg/dL (8.5-10.1); Chloride, Blood 108 mmol/L (98-108); Creatinine, Blood 0.77 mg/dL (0.40-1.00); Globulin, Blood 2.8 g/dL (2.2-4.0); Glomerular Filtration Rate >60 (60-); Glucose, Blood 87 mg/dL (70-99); Potassium, Blood 3.7 mmol/L (3.5-5.5); Sodium, Blood 140 mmol/L (136-145); Total Protein, Blood 4.8 g/dL (6.4-8.2)
[2021-05-17 17:47] LABS: Hematocrit 24.6 % (33.0-51.0); Hemoglobin 8.3 g/dL (11.5-16.0)
[2021-05-17 23:40] LABS: Hematocrit 24.4 % (33.0-51.0)
[2021-05-18 04:49] LABS: BASOPHILS ABSOLUTE AUTO 0.05 K/mm3 (0.00-0.23); BASOPHILS PERCENT AUTO 1 % (0-2); EOSINOPHILS ABSOLUTE AUTO 0.24 K/mm3 (0.00-0.68); EOSINOPHILS PERCENT AUTO 3 % (0-6); Hematocrit 22.5 % (33.0-51.0); Hemoglobin 7.4 g/dL (11.5-16.0); IMMATURE GRAN ABSOLUTE AUTO 0.05 K/mm3 (0.00-0.10); IMMATURE GRAN PERCENT AUTO 1 % (0-1); LYMPHOCYTES ABSOLUTE AUTO 1.61 K/mm3 (0.84-5.20); LYMPHOCYTES PERCENT AUTO 17 % (21-46); MONOCYTES ABSOLUTE AUTO 0.71 K/mm3 (0.16-1.47); MONOCYTES PERCENT AUTO 8 % (4-13); Mean Corpuscular HGB 29.7 pg (26.0-34.0); Mean Corpuscular HGB Conc 32.9 g/dL (31.5-36.5); Mean Corpuscular Volume 90 fL (80-100); Mean Platelet Volume 12.6 fL (9.1-12.4); NEUTROPHILS ABSOLUTE AUTO 6.72 K/mm3 (1.96-9.15); NEUTROPHILS PERCENT AUTO 72 % (41-73); Platelet Count 193 K/mm3 (150-400); RDW Coefficient Variation 17.1 % (11.7-14.2); RDW Standard Deviation 51.4 fL (35.1-46.3); Red Blood Cell Count 2.49 M/mm3 (3.80-5.20); White Blood Cell Count 9.38 K/mm3 (4.00-11.30)
[2021-05-18 05:22] LABS: Anion Gap 3 mmol/L (6-16); Blood Urea Nitrogen 26 mg/dL (8-24); Bun/Creatinine Ratio 34.3 (12.0-20.0); CO2, Blood 28 mmol/L (21-32); Calcium, Blood 7.9 mg/dL (8.5-10.1); Chloride, Blood 108 mmol/L (98-108); Creatinine, Blood 0.76 mg/dL (0.40-1.00); Glomerular Filtration Rate >60 (60-); Glucose, Blood 126 mg/dL (70-99); Potassium, Blood 3.7 mmol/L (3.5-5.5); Sodium, Blood 139 mmol/L (136-145)
[2021-05-18 17:16] LABS: Hematocrit 20.3 % (33.0-51.0); Hemoglobin 6.6 g/dL (11.5-16.0)
[2021-05-19 02:33] LABS: Hemoglobin 7.4 g/dL (11.5-16.0)
[2021-05-19 17:13] LABS: Hematocrit 22.6 % (33.0-51.0); Hemoglobin 7.7 g/dL (11.5-16.0)
[2021-05-20 04:50] LABS: BASOPHILS ABSOLUTE AUTO 0.04 K/mm3 (0.00-0.23); BASOPHILS PERCENT AUTO 0 % (0-2); EOSINOPHILS ABSOLUTE AUTO 0.03 K/mm3 (0.00-0.68); EOSINOPHILS PERCENT AUTO 0 % (0-6); Hematocrit 25.3 % (33.0-51.0); Hemoglobin 8.6 g/dL (11.5-16.0); IMMATURE GRAN PERCENT AUTO 1 % (0-1); LYMPHOCYTES ABSOLUTE AUTO 0.84 K/mm3 (0.84-5.20); LYMPHOCYTES PERCENT AUTO 5 % (21-46); MONOCYTES ABSOLUTE AUTO 1.25 K/mm3 (0.16-1.47); MONOCYTES PERCENT AUTO 8 % (4-13); Mean Corpuscular HGB 30.7 pg (26.0-34.0); Mean Corpuscular Volume 90 fL (80-100); Mean Platelet Volume 12.1 fL (9.1-12.4); NEUTROPHILS PERCENT AUTO 85 % (41-73); Platelet Count 272 K/mm3 (150-400); RDW Coefficient Variation 17.7 % (11.7-14.2); RDW Standard Deviation 49.5 fL (35.1-46.3); White Blood Cell Count 15.46 K/mm3 (4.00-11.30)
[2021-05-20 05:13] LABS: Anion Gap 7 mmol/L (6-16); Blood Urea Nitrogen 17 mg/dL (8-24); Bun/Creatinine Ratio 23.8 (12.0-20.0); CO2, Blood 29 mmol/L (21-32); Calcium, Blood 7.7 mg/dL (8.5-10.1); Chloride, Blood 99 mmol/L (98-108); Creatinine, Blood 0.71 mg/dL (0.40-1.00); Glomerular Filtration Rate >60 (60-); Glucose, Blood 233 mg/dL (70-99); Potassium, Blood 3.3 mmol/L (3.5-5.5); Sodium, Blood 135 mmol/L (136-145)
[2021-05-21 06:02] LABS: BASOPHILS ABSOLUTE AUTO 0.03 K/mm3 (0.00-0.23); BASOPHILS PERCENT AUTO 0 % (0-2); EOSINOPHILS ABSOLUTE AUTO 0.05 K/mm3 (0.00-0.68); EOSINOPHILS PERCENT AUTO 0 % (0-6); Hematocrit 22.8 % (33.0-51.0); Hemoglobin 7.6 g/dL (11.5-16.0); IMMATURE GRAN ABSOLUTE AUTO 0.12 K/mm3 (0.00-0.10); IMMATURE GRAN PERCENT AUTO 1 % (0-1); LYMPHOCYTES ABSOLUTE AUTO 0.96 K/mm3 (0.84-5.20); LYMPHOCYTES PERCENT AUTO 6 % (21-46); MONOCYTES ABSOLUTE AUTO 1.05 K/mm3 (0.16-1.47); MONOCYTES PERCENT AUTO 7 % (4-13); Mean Corpuscular HGB 30.8 pg (26.0-34.0); Mean Corpuscular HGB Conc 33.3 g/dL (31.5-36.5); Mean Corpuscular Volume 92 fL (80-100); Mean Platelet Volume 11.7 fL (9.1-12.4); NEUTROPHILS ABSOLUTE AUTO 13.55 K/mm3 (1.96-9.15); NEUTROPHILS PERCENT AUTO 86 % (41-73); Platelet Count 334 K/mm3 (150-400); RDW Coefficient Variation 17.1 % (11.7-14.2); RDW Standard Deviation 51.3 fL (35.1-46.3); Red Blood Cell Count 2.47 M/mm3 (3.80-5.20); White Blood Cell Count 15.76 K/mm3 (4.00-11.30)
[2021-05-21 06:20] LABS: Anion Gap 5 mmol/L (6-16); Blood Urea Nitrogen 14 mg/dL (8-24); Bun/Creatinine Ratio 19.4 (12.0-20.0); CO2, Blood 28 mmol/L (21-32); Calcium, Blood 8.4 mg/dL (8.5-10.1); Chloride, Blood 104 mmol/L (98-108); Creatinine, Blood 0.72 mg/dL (0.40-1.00); Glomerular Filtration Rate >60 (60-); Glucose, Blood 127 mg/dL (70-99); Potassium, Blood 3.6 mmol/L (3.5-5.5); Sodium, Blood 137 mmol/L (136-145)
[2021-05-22 05:50] LABS: BASOPHILS ABSOLUTE AUTO 0.03 K/mm3 (0.00-0.23); BASOPHILS PERCENT AUTO 0 % (0-2); EOSINOPHILS ABSOLUTE AUTO 0.09 K/mm3 (0.00-0.68); EOSINOPHILS PERCENT AUTO 1 % (0-6); Hematocrit 24.9 % (33.0-51.0); Hemoglobin 7.9 g/dL (11.5-16.0); IMMATURE GRAN ABSOLUTE AUTO 0.14 K/mm3 (0.00-0.10); IMMATURE GRAN PERCENT AUTO 1 % (0-1); LYMPHOCYTES ABSOLUTE AUTO 1.03 K/mm3 (0.84-5.20); LYMPHOCYTES PERCENT AUTO 7 % (21-46); MONOCYTES ABSOLUTE AUTO 0.94 K/mm3 (0.16-1.47); MONOCYTES PERCENT AUTO 6 % (4-13); Mean Corpuscular HGB 30.2 pg (26.0-34.0); Mean Corpuscular HGB Conc 31.7 g/dL (31.5-36.5); Mean Corpuscular Volume 95 fL (80-100); Mean Platelet Volume 11.3 fL (9.1-12.4); NEUTROPHILS ABSOLUTE AUTO 12.78 K/mm3 (1.96-9.15); NEUTROPHILS PERCENT AUTO 85 % (41-73); Platelet Count 430 K/mm3 (150-400); RDW Coefficient Variation 17.2 % (11.7-14.2); RDW Standard Deviation 55.1 fL (35.1-46.3); Red Blood Cell Count 2.62 M/mm3 (3.80-5.20); White Blood Cell Count 15.01 K/mm3 (4.00-11.30)
[2021-05-23 06:50] LABS: Percent Saturation 10.9 % (15.0-50.0)
[2021-05-24 06:11] LABS: BASOPHILS ABSOLUTE AUTO 0.07 K/mm3 (0.00-0.23); BASOPHILS PERCENT AUTO 1 % (0-2); EOSINOPHILS ABSOLUTE AUTO 0.16 K/mm3 (0.00-0.68); EOSINOPHILS PERCENT AUTO 1 % (0-6); Hematocrit 23.5 % (33.0-51.0); Hemoglobin 7.4 g/dL (11.5-16.0); IMMATURE GRAN ABSOLUTE AUTO 0.04 K/mm3 (0.00-0.10); IMMATURE GRAN PERCENT AUTO 0 % (0-1); LYMPHOCYTES ABSOLUTE AUTO 1.37 K/mm3 (0.84-5.20); LYMPHOCYTES PERCENT AUTO 12 % (21-46); MONOCYTES ABSOLUTE AUTO 0.68 K/mm3 (0.16-1.47); MONOCYTES PERCENT AUTO 6 % (4-13); Mean Corpuscular HGB 29.8 pg (26.0-34.0); Mean Corpuscular HGB Conc 31.5 g/dL (31.5-36.5); Mean Corpuscular Volume 95 fL (80-100); Mean Platelet Volume 10.8 fL (9.1-12.4); NEUTROPHILS ABSOLUTE AUTO 8.82 K/mm3 (1.96-9.15); NEUTROPHILS PERCENT AUTO 79 % (41-73); Platelet Count 502 K/mm3 (150-400); RDW Coefficient Variation 16.2 % (11.7-14.2); RDW Standard Deviation 53.1 fL (35.1-46.3); Red Blood Cell Count 2.48 M/mm3 (3.80-5.20); White Blood Cell Count 11.14 K/mm3 (4.00-11.30)
[2021-05-25 09:45] LABS: SARS-Cov-2 (COVID-19) PCR, MMC NEGATIVE (NEGATIVE)
== END 2021-05-25 13:10 | DRG 252 ==
LOC: MHTC 08:32 → MEDS 14:50 → ORSCIP 21:49 → MHTC 21:49 → ORSCIP 05-20 13:10
PROVIDERS: Family Medicine; Internal Medicine; Physician Assistant; Radiology Diagnostic Radiology; ADMIT Internal Medicine
PROC: 30233N1 Transfusion of Nonautologous Red Blood Cells into Peripheral Vein, Percutaneous Approach (ICD-10-PCS; principal; 2021-05-13)
PROC: 047M34Z Dilation of Right Popliteal Artery with Drug-eluting Intraluminal Device, Percutaneous Approach (ICD-10-PCS; 2021-05-13)
PROC: 047K34Z Dilation of Right Femoral Artery with Drug-eluting Intraluminal Device, Percutaneous Approach (ICD-10-PCS; 2021-05-13)
DX: E11.52 Type 2 diabetes mellitus with diabetic peripheral angiopathy with gangrene (principal); I77.77 Dissection of artery of lower extremity; I96 Gangrene, not elsewhere classified; D62 Acute posthemorrhagic anemia; B20 Human immunodeficiency virus [HIV] disease; Z20.822 Contact with and (suspected) exposure to COVID-19; I48.91 Unspecified atrial fibrillation; I10 Essential (primary) hypertension; Z51.5 Encounter for palliative care; D64.9 Anemia, unspecified; K21.9 Gastro-esophageal reflux disease without esophagitis; E11.40 Type 2 diabetes mellitus with diabetic neuropathy, unspecified; I25.10 Atherosclerotic heart disease of native coronary artery without angina pectoris; Z90.49 Acquired absence of other specified parts of digestive tract; Z98.84 Bariatric surgery status; Z90.89 Acquired absence of other organs; Z90.710 Acquired absence of both cervix and uterus; Z88.2 Allergy status to sulfonamides; Z88.5 Allergy status to narcotic agent; Z88.8 Allergy status to other drugs, medicaments and biological substances; Z79.4 Long term (current) use of insulin; Z79.02 Long term (current) use of antithrombotics/antiplatelets; Z79.899 Other long term (current) drug therapy
CPT/HCPCS: 36415; 36430; 37184; 37185; 37224; 37228; 73552; 73590; 74177; 75710; 76937; 80048; 80053; 81001; 82607; 82728; 82746; 82947; 83540; 83550; 85014; 85018; 85025; 85347; 85610; 85730; 86850; 86900; 86901; 86920; 86923; 88307; 93926; 97110; 97162; 97167; 97530; 97535; 99152; 99153; A9270; C1725; C1751; C1753; C1757; C1760; C1769; C1874; C1887; C1894; C9113; J0690; J1100; J1644; J1815; J2250; J2370; J2405; J2704; J2997; J3010; J7030; J7040; J7050; J7120; P9016; Q9967; U0004

== ENCOUNTER 2021-05-28 23:20 | Emergency (ER) | payer OTHER ==
[~2021-05-28] VITALS: Ht 170.2 cm; Wt 57.6 kg
== END 2021-05-29 01:40 | disposition home or self-care (01) ==
LOC: ER 23:20
DX: L76.32 Postprocedural hematoma of skin and subcutaneous tissue following other procedure (principal); I12.9 Hypertensive chronic kidney disease with stage 1 through stage 4 chronic kidney disease, or unspecified chronic kidney disease; E11.22 Type 2 diabetes mellitus with diabetic chronic kidney disease; N18.30 Chronic kidney disease, stage 3 unspecified; I48.91 Unspecified atrial fibrillation; E78.5 Hyperlipidemia, unspecified; D50.9 Iron deficiency anemia, unspecified; Z87.891 Personal history of nicotine dependence; Z88.8 Allergy status to other drugs, medicaments and biological substances; Z88.2 Allergy status to sulfonamides; Z88.5 Allergy status to narcotic agent; Z91.02 Food additives allergy status; Z79.899 Other long term (current) drug therapy; Z79.02 Long term (current) use of antithrombotics/antiplatelets; Z79.4 Long term (current) use of insulin; Z79.01 Long term (current) use of anticoagulants
CPT/HCPCS: 76857; 99284-25

== ENCOUNTER → 2021-06-27 | Outpatient (CLI) | payer OTHER ==
[~2021-06-27] MED LIST changes: +ALLO300 PO; +ATOR80 PO; +FERSU300 PO; +GABA300 PO; +LEVFLO500 PO
[2021-06-27 05:39] LABS: BASOPHILS ABSOLUTE AUTO 0.05 K/mm3 (0.00-0.23); BASOPHILS PERCENT AUTO 1 % (0-2); EOSINOPHILS ABSOLUTE AUTO 0.23 K/mm3 (0.00-0.68); EOSINOPHILS PERCENT AUTO 3 % (0-6); Hemoglobin 10.8 g/dL (11.5-16.0); IMMATURE GRAN ABSOLUTE AUTO 0.04 K/mm3 (0.00-0.10); IMMATURE GRAN PERCENT AUTO 1 % (0-1); LYMPHOCYTES ABSOLUTE AUTO 2.09 K/mm3 (0.84-5.20); LYMPHOCYTES PERCENT AUTO 30 % (21-46); MONOCYTES ABSOLUTE AUTO 0.43 K/mm3 (0.16-1.47); MONOCYTES PERCENT AUTO 6 % (4-13); Mean Corpuscular HGB 28.8 pg (26.0-34.0); Mean Corpuscular HGB Conc 30.9 g/dL (31.5-36.5); Mean Corpuscular Volume 93 fL (80-100); Mean Platelet Volume 12.2 fL (9.1-12.4); NEUTROPHILS ABSOLUTE AUTO 4.09 K/mm3 (1.96-9.15); NEUTROPHILS PERCENT AUTO 59 % (41-73); Platelet Count 246 K/mm3 (150-400); RDW Coefficient Variation 16.1 % (11.7-14.2); RDW Standard Deviation 54.9 fL (35.1-46.3); Red Blood Cell Count 3.75 M/mm3 (3.80-5.20); White Blood Cell Count 6.93 K/mm3 (4.00-11.30)
[2021-06-27 05:51] LABS: International Normalized Ratio 1.06; Prothrombin Time Results 11.1 Sec (9.7-11.5)
[2021-06-27 05:55] LABS: Anion Gap 6 mmol/L (6-16); Blood Urea Nitrogen 19 mg/dL (8-24); CO2, Blood 27 mmol/L (21-32); Calcium, Blood 8.7 mg/dL (8.5-10.1); Chloride, Blood 110 mmol/L (98-108); Creatinine, Blood 0.61 mg/dL (0.40-1.00); Glomerular Filtration Rate >60 (60-); Glucose, Blood 108 mg/dL (70-99); Potassium, Blood 3.3 mmol/L (3.5-5.5); Sodium, Blood 143 mmol/L (136-145)
== END ==
LOC: LAB UVN 05:29 → EDSTATUS 15:23
PROVIDERS: Internal Medicine Critical Care Medicine
DX: Z47.81 Encounter for orthopedic aftercare following surgical amputation (principal); E11.52 Type 2 diabetes mellitus with diabetic peripheral angiopathy with gangrene; I73.9 Peripheral vascular disease, unspecified; Z79.4 Long term (current) use of insulin; Z88.1 Allergy status to other antibiotic agents; Z88.2 Allergy status to sulfonamides; Z88.5 Allergy status to narcotic agent; Z88.8 Allergy status to other drugs, medicaments and biological substances; Z91.041 Radiographic dye allergy status
CPT/HCPCS: 80048; 85025; 85610

== ENCOUNTER 2021-06-29 10:57 | Day surgery (SDC) | payer OTHER ==
[~2021-06-29] VITALS: Ht 170.2 cm; Wt 54.0 kg
[~2021-06-29 10:57] MED LIST changes: -GABA300 PO; -LEVFLO500 PO
--- NOTE | 2021-06-29 17:18 | NUR ---
ADMISSION TO ICU/SHIFT SUMMARY PT ARRIVED TO ICU AT 1430 FROM METAL DOOR ASSEMBLER FOR EXT RECOVERY. PLAN FOR ANGIOGRAM c INTERVENTION TOMORROW. ART SHEATH IN PLACE TO RIGHT GROIN. ALTAPLASE AT 1 MG/HR STARTED IN SHEATH, HEPARIN AT 6 ML/HR VIA SIDE PORT PER DR YOUSSEF. PT C/O ACHE TO GROIN, SOFT, NON TENDER TO PALPATION, DENIES BACK PAIN, NO BRUISING OR HEMATOMA NOTED. 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 DRESSING IN PLACE. LLE DUSKY TO FOOT, NO PULSES BY DOPPLER. PT STATES THIS BASELINE. C/O PAIN POSTERIOR CALF. MEDICATED FOR PAIN ORDERED. VSS. WILL CONTINUE TO MONITOR UNTIL REPORT TO ONCOMING NURSE.
--- NOTE | 2021-06-29 19:38 | NUR ---
ASSUMED CARE OF PT AT 1915. REPORT RECEIVED AT BEDSIDE. PT PRESENTS IN BED. HAS TPA INFUSING TO RIGHT FEMORAL SHEATH. UNABLE TO PALPATE LEFT PEDAL PULSE. LEFT FOOT COOL TO THE TOUCH. PT RIGHT BKA. PT ALERT AND ORIENTED. PLEASANT AND COOPERATIVE WITH CARE AND ASSESSMENT. WILL REVIEW CHART AND PLAN OF CARE FOR THIS PT.
[2021-06-29 22:57] LABS: Source, Urine Catheter
[2021-06-29 23:02] LABS: Bilirubin, Urine Neg (Neg); Blood, Urine Neg (Neg); Glucose Qualitative, Urine 4+ (Neg); Ketones, Urine Neg (Neg); Leukocyte Esterase, Urine Neg (Neg); Nitrite, Urine Neg (Neg); Protein, Urine 2+ (Neg); Urobilinogen, Urine NORM (Normal)
[2021-06-29 23:12] LABS: Appearance, Urine Clear (Clear); Color, Urine Yellow (P-Yellow)
[2021-06-29 23:13] LABS: Bacteria Few /hpf; Red Blood Cells, Urine Not Seen /hpf (0-2); Squamous Epithelial Cells Mod /hpf (Few)
[2021-06-29 23:14] LABS: White Blood Cells, Urine Rare /hpf (0-5); Yeast/Fungi Urine Few /hpf
[2021-06-29 23:15] LABS: Hyaline Casts 0-2 /lpf (0-2)
--- NOTE | 2021-06-30 | NUR ---
PT CONTINUES ON TPA PER FEMORAL SHEATH. HEPAIN ALSO INFUSING. OF NOTE: SMALL HEMATOMA PRESENT AT RIGHT INSERTION SITE. PT STATES THAT THIS HAS BEEN PRESENT FROM PREVIOUS PERIPHERAL PROCEDURE. WAS ABLE TO REDUCE THIS. NO OOZING FROM SITE. WILL CONTINUE TO MONITOR.
--- NOTE | 2021-06-30 06:26 | NUR ---
PT CONTINUES WITH TPA AND HEAPRIN PER RIGHT FEMORAL SHEATH. THIS AM HAVE BEEN ABLE TO OBTAIN FAINT PEDAL PULSE LEFT FOOT. PT HAS BEEN MEDICATED SEVERAL TIMES WITH 1 MG DILAUDID FOR LEG PAIN. PT STATES THIS HAS BEEN HELPFUL. WILL CONTINUE TO MONITOR PT, AND WILL REPORT OFF TO ONCOMING RN.
--- NOTE | 2021-06-30 08:11 | NUR ---
ASSUMED CARE REPORT FROM MALA CESAR. PT RESTING IN BED. WAKES c VERBAL STIMULI. A&O X4. RIGHT GROIN ART SHEATH IN PLACE. TPA INFUSING VIA PORT, 1 MG/HR, HEPARIN GTT INFUSING THROUGH SIDE PORT, 6 ML/HR. NO BRUISING, SWELLING OR HEMATOMA NOTED. DRESSING INTACT. PT C/O ACHING PAIN. DENIES FLANK PAIN. LEFT FOOT COOL, DUSKY, NO PULSES BY DOPPLER. PT STATES THIS BASELINE. VSS. NATIONAL SALES TEAM AT BEDSIDE TO TRANSPORT FOR PROCEDURE. WILL CONTINUE TO MONITOR.
[2021-06-30] MEDS ORDERED: PREG150 PO (15:59)
--- NOTE | 2021-06-30 17:10 | NUR ---
PT RETURNED FROM MEDICAL BILL PROCESSOR AT 1140. SLIGHT HEMATOMA NOTED TO RIGHT GROIN. SEVERO DRESSING AND OPSITE IN PLACE. DENIES FLANK PAIN. NO BRUISING NOTED. SITE MONITORED CLOSELY, NO INCREASE IN SIZE AT THIS TIME. TIBAL PULSE TO LEFT FOOT BY DOPPLER. FOOT PINK. PT PENDING D/C, GUERRERO AND IV TO BE REMOVED PRIOR TO DISCHARGE.
[2021-07-03] MEDS ORDERED: GABA300 PO (01:01)
== END 2021-06-30 18:30 ==
LOC: MHTC 10:57 → ICUW 10:57 → MHTC 11:00 → ICUW 14:25 → MHTC 06-30 18:30
PROVIDERS: Radiology Diagnostic Radiology
DX: E11.51 Type 2 diabetes mellitus with diabetic peripheral angiopathy without gangrene (principal); I70.223 Atherosclerosis of native arteries of extremities with rest pain, bilateral legs; I10 Essential (primary) hypertension; I48.91 Unspecified atrial fibrillation; Z21 Asymptomatic human immunodeficiency virus [HIV] infection status; Z86.711 Personal history of pulmonary embolism; Z89.511 Acquired absence of right leg below knee; Z79.01 Long term (current) use of anticoagulants; Z79.02 Long term (current) use of antithrombotics/antiplatelets; Z79.4 Long term (current) use of insulin; Z87.891 Personal history of nicotine dependence
CPT/HCPCS: 36415; 51703; 76937; 81001; 82947; 85018; 85347; 85384; 99152; 99153; A9270; C1724; C1725; C1751; C1760; C1769; C1887; C1894; C9113; J1170; J1644; J1815; J2250; J2997; J3010; J7030; J7040; J7050; Q9967

== ENCOUNTER → 2021-07-04 | Outpatient (CLI) | payer OTHER ==
[~2021-07-04] MED LIST changes: +GABA300 PO; +LEVFLO500 PO
[2021-07-04 06:16] LABS: Anion Gap 4 mmol/L (6-16); Blood Urea Nitrogen 20 mg/dL (8-24); Bun/Creatinine Ratio 32.4 (12.0-20.0); CO2, Blood 26 mmol/L (21-32); Calcium, Blood 8.4 mg/dL (8.5-10.1); Chloride, Blood 110 mmol/L (98-108); Creatinine, Blood 0.62 mg/dL (0.40-1.00); Glomerular Filtration Rate >60 (60-); Glucose, Blood 145 mg/dL (70-99); Potassium, Blood 3.9 mmol/L (3.5-5.5); Sodium, Blood 140 mmol/L (136-145)
== END ==
LOC: LAB UVN 05:41 → EDSTATUS 15:26
PROVIDERS: Nurse Practitioner Family
DX: Z47.81 Encounter for orthopedic aftercare following surgical amputation (principal); E11.52 Type 2 diabetes mellitus with diabetic peripheral angiopathy with gangrene; B20 Human immunodeficiency virus [HIV] disease; Z79.4 Long term (current) use of insulin; Z88.2 Allergy status to sulfonamides; Z88.5 Allergy status to narcotic agent; Z88.8 Allergy status to other drugs, medicaments and biological substances; Z88.1 Allergy status to other antibiotic agents; Z91.048 Other nonmedicinal substance allergy status
CPT/HCPCS: 80048

== ENCOUNTER 2021-07-13 09:12 | Day surgery (SDC) | payer OTHER ==
[~2021-07-13] VITALS: Ht 167.6 cm; Wt 56.9 kg
[~2021-07-13 09:12] MED LIST changes: -LEVFLO500 PO
--- NOTE | 2021-07-13 11:41 | NUR ---
History, Chart, Medications and Allergies reviewed before start of procedure.Patient confirms NPO status and agrees with scheduled surgery. Patient States Post-Procedure ride home has been arranged.
--- NOTE | 2021-07-13 16:12 | NUR ---
Patient up to Transfer to wheelchair with stand by assist. Gait steady. Discharge instructions reviewed with patient. Patient verbalizes understanding. Copy given to patient to take home. Dressing to procedure site clean, dry, intact with no visible drainage, swelling, erythema or bruising noted. Discharged via wheelchair to [facility] for transport. All patients belongings sent with patient.
== END 2021-07-13 16:12 | disposition home or self-care (01) ==
LOC: ORSCMMR 09:12 → ORD 09:30 → ORSCMMR 09:30
PROVIDERS: Orthopaedic Surgery
PROC: 0QBG0ZZ Excision of Right Tibia, Open Approach (ICD-10-PCS; principal; 2021-07-13 09:30)
DX: S81.801A Unspecified open wound, right lower leg, initial encounter (principal); I10 Essential (primary) hypertension; I48.91 Unspecified atrial fibrillation; Z79.01 Long term (current) use of anticoagulants; Z87.891 Personal history of nicotine dependence; E11.9 Type 2 diabetes mellitus without complications; N18.9 Chronic kidney disease, unspecified; E11.40 Type 2 diabetes mellitus with diabetic neuropathy, unspecified; Z79.4 Long term (current) use of insulin; Z79.02 Long term (current) use of antithrombotics/antiplatelets; Z79.899 Other long term (current) drug therapy
CPT/HCPCS: 82947; 87071; 87075; 87205; A9270; J0690; J2250; J2370; J2405; J2704; J2765; J3010; J3370; J7120

== ENCOUNTER → 2021-07-19 | Outpatient (CLI) | payer OTHER ==
[~2021-07-19] MED LIST changes: +ELIQUIS5 M2 PO; +LEVFLO500 PO
[2021-07-19 09:59] LABS: Hematocrit 31.8 % (33.0-51.0); Hemoglobin 9.8 g/dL (11.5-16.0); Mean Corpuscular HGB 28.1 pg (26.0-34.0); Mean Corpuscular HGB Conc 30.8 g/dL (31.5-36.5); Mean Corpuscular Volume 91 fL (80-100); Mean Platelet Volume 12.4 fL (9.1-12.4); Platelet Count 256 K/mm3 (150-400); RDW Coefficient Variation 14.8 % (11.7-14.2); RDW Standard Deviation 49.1 fL (35.1-46.3); Red Blood Cell Count 3.49 M/mm3 (3.80-5.20); White Blood Cell Count 6.57 K/mm3 (4.00-11.30)
[2021-07-19 10:15] LABS: Anion Gap 5 mmol/L (6-16); Blood Urea Nitrogen 19 mg/dL (8-24); Bun/Creatinine Ratio 25.6 (12.0-20.0); CO2, Blood 26 mmol/L (21-32); Calcium, Blood 8.5 mg/dL (8.5-10.1); Chloride, Blood 110 mmol/L (98-108); Creatinine, Blood 0.74 mg/dL (0.40-1.00); Glomerular Filtration Rate >60 (60-); Glucose, Blood 173 mg/dL (70-99); Potassium, Blood 3.5 mmol/L (3.5-5.5); Sodium, Blood 141 mmol/L (136-145)
== END | disposition home or self-care (01) ==
LOC: LAB UVN 07:38 → EDSTATUS 13:05
PROVIDERS: Internal Medicine
DX: I73.9 Peripheral vascular disease, unspecified (principal); D64.9 Anemia, unspecified; I10 Essential (primary) hypertension
CPT/HCPCS: 80048; 85027

== ENCOUNTER 2021-07-21 05:32 | Day surgery (SDC) | payer OTHER ==
[~2021-07-21 05:32] MED LIST changes: -ELIQUIS5 M2 PO; -LEVFLO500 PO
[2021-07-21] MEDS ORDERED: LEVFLO500 PO (17:32)
[2021-07-21] MEDS ORDERED: POTCHL20ER PO (17:33)
== END 2021-07-21 16:15 | disposition home or self-care (01) ==
LOC: ATC 05:32
DX: T81.42XA Infection following a procedure, deep incisional surgical site, initial encounter (principal); B20 Human immunodeficiency virus [HIV] disease; I10 Essential (primary) hypertension; E78.5 Hyperlipidemia, unspecified; E11.51 Type 2 diabetes mellitus with diabetic peripheral angiopathy without gangrene; Z79.4 Long term (current) use of insulin; Z88.6 Allergy status to analgesic agent; Z88.5 Allergy status to narcotic agent; Z88.2 Allergy status to sulfonamides; Z88.8 Allergy status to other drugs, medicaments and biological substances; Z95.820 Peripheral vascular angioplasty status with implants and grafts
CPT/HCPCS: 36569; C1751

== ENCOUNTER 2021-07-21 16:36 | Emergency (ER) | payer OTHER ==
[~2021-07-21] VITALS: Ht 167.6 cm; Wt 56.7 kg
[2021-07-21 17:08] LABS: BASOPHILS ABSOLUTE AUTO 0.09 K/mm3 (0.00-0.23); BASOPHILS PERCENT AUTO 1 % (0-2); EOSINOPHILS ABSOLUTE AUTO 0.48 K/mm3 (0.00-0.68); EOSINOPHILS PERCENT AUTO 7 % (0-6); Hematocrit 32.8 % (33.0-51.0); IMMATURE GRAN ABSOLUTE AUTO 0.02 K/mm3 (0.00-0.10); IMMATURE GRAN PERCENT AUTO 0 % (0-1); LYMPHOCYTES ABSOLUTE AUTO 1.59 K/mm3 (0.84-5.20); LYMPHOCYTES PERCENT AUTO 21 % (21-46); MONOCYTES ABSOLUTE AUTO 0.38 K/mm3 (0.16-1.47); MONOCYTES PERCENT AUTO 5 % (4-13); Mean Corpuscular HGB 28.3 pg (26.0-34.0); Mean Corpuscular HGB Conc 30.5 g/dL (31.5-36.5); Mean Corpuscular Volume 93 fL (80-100); Mean Platelet Volume 12.1 fL (9.1-12.4); NEUTROPHILS ABSOLUTE AUTO 4.88 K/mm3 (1.96-9.15); NEUTROPHILS PERCENT AUTO 66 % (41-73); Platelet Count 246 K/mm3 (150-400); RDW Coefficient Variation 15.3 % (11.7-14.2); RDW Standard Deviation 51.9 fL (35.1-46.3); Red Blood Cell Count 3.53 M/mm3 (3.80-5.20); White Blood Cell Count 7.44 K/mm3 (4.00-11.30)
[2021-07-21] MEDS ORDERED: LEVFLO500 PO (17:32)
[2021-07-21] MEDS ORDERED: POTCHL20ER PO (17:33)
[2021-07-21 17:35] LABS: Alanine Aminotransfer (ALT/SGP 246 U/L (12-78); Albumin, Blood 2.6 g/dL (3.4-5.0); Albumin/Globulin Ratio 0.8 (0.8-1.8); Alk Phos 156 U/L (50-136); Anion Gap 4 mmol/L (6-16); Aspartate Aminotrans (AST/SGOT 130 U/L (12-37); Bilirubin, Total 0.2 mg/dL (0.1-1.0); Blood Urea Nitrogen 24 mg/dL (8-24); CO2, Blood 27 mmol/L (21-32); Calcium, Blood 8.4 mg/dL (8.5-10.1); Chloride, Blood 110 mmol/L (98-108); Creatinine, Blood 0.89 mg/dL (0.40-1.00); Globulin, Blood 3.3 g/dL (2.2-4.0); Glomerular Filtration Rate >60 (60-); Glucose, Blood 199 mg/dL (70-99); Potassium, Blood 4.4 mmol/L (3.5-5.5); Sodium, Blood 141 mmol/L (136-145); Total Protein, Blood 5.9 g/dL (6.4-8.2)
== END 2021-07-21 19:30 | disposition home or self-care (01) ==
LOC: ER 16:36
PROVIDERS: Physician Assistant
DX: S09.90XA Unspecified injury of head, initial encounter (principal); W18.30XA Fall on same level, unspecified, initial encounter; Z88.8 Allergy status to other drugs, medicaments and biological substances; Z88.2 Allergy status to sulfonamides; Z88.5 Allergy status to narcotic agent; Z88.1 Allergy status to other antibiotic agents; Z91.02 Food additives allergy status; Z79.899 Other long term (current) drug therapy; Z79.4 Long term (current) use of insulin; Z21 Asymptomatic human immunodeficiency virus [HIV] infection status; E11.22 Type 2 diabetes mellitus with diabetic chronic kidney disease; I12.9 Hypertensive chronic kidney disease with stage 1 through stage 4 chronic kidney disease, or unspecified chronic kidney disease; N18.30 Chronic kidney disease, stage 3 unspecified; E78.5 Hyperlipidemia, unspecified; I48.91 Unspecified atrial fibrillation; M10.9 Gout, unspecified; D50.9 Iron deficiency anemia, unspecified
CPT/HCPCS: 70450; 73562-RT; 80053; 85025; 93005; 93010; 99284-25

== ENCOUNTER 2021-08-14 17:11 | Emergency (ER) | payer OTHER ==
[~2021-08-14] VITALS: Ht 160 cm; Wt 56.7 kg
[~2021-08-14 17:11] MED LIST changes: +LEVFLO500 PO
== END 2021-08-14 19:28 | disposition home or self-care (01) ==
LOC: ER 17:11
DX: T87.81 Dehiscence of amputation stump (principal); Z21 Asymptomatic human immunodeficiency virus [HIV] infection status; E78.5 Hyperlipidemia, unspecified; I12.9 Hypertensive chronic kidney disease with stage 1 through stage 4 chronic kidney disease, or unspecified chronic kidney disease; E11.22 Type 2 diabetes mellitus with diabetic chronic kidney disease; N18.30 Chronic kidney disease, stage 3 unspecified; M10.9 Gout, unspecified; I48.91 Unspecified atrial fibrillation; Z88.2 Allergy status to sulfonamides; Z88.5 Allergy status to narcotic agent; Z91.048 Other nonmedicinal substance allergy status; Z88.8 Allergy status to other drugs, medicaments and biological substances; Z79.899 Other long term (current) drug therapy; Z79.4 Long term (current) use of insulin
CPT/HCPCS: 73562-RT; 99283-25

== ENCOUNTER → 2021-08-16 | Outpatient (CLI) | payer OTHER ==
[~2021-08-16] MED LIST changes: +ELIQUIS5 M2 PO
[2021-08-16 05:57] LABS: Hematocrit 39.5 % (33.0-51.0); Hemoglobin 12.3 g/dL (11.5-16.0)
[2021-08-16 06:38] LABS: Albumin, Blood 2.8 g/dL (3.4-5.0); Anion Gap 8 mmol/L (6-16); Blood Urea Nitrogen 34 mg/dL (8-24); Bun/Creatinine Ratio 45.6 (12.0-20.0); CO2, Blood 26 mmol/L (21-32); Calcium, Blood 9.3 mg/dL (8.5-10.1); Chloride, Blood 110 mmol/L (98-108); Creatinine, Blood 0.75 mg/dL (0.40-1.00); Glomerular Filtration Rate >60 (60-); Glucose, Blood 193 mg/dL (70-99); Magnesium, Blood 1.7 mg/dL (1.6-2.4); Phosphorus, Blood 4.4 mg/dL (2.5-4.9); Potassium, Blood 4.1 mmol/L (3.5-5.5); Sodium, Blood 144 mmol/L (136-145); Uric Acid, Blood 1.8 mg/dL (2.6-6.0)
== END | disposition home or self-care (01) ==
LOC: LAB UVN 05:47 → EDSTATUS 10:39
PROVIDERS: Internal Medicine
DX: E11.52 Type 2 diabetes mellitus with diabetic peripheral angiopathy with gangrene (principal); B20 Human immunodeficiency virus [HIV] disease
CPT/HCPCS: 80069; 83735; 84550; 85014; 85018

== ENCOUNTER → 2021-08-18 | Outpatient (CLI) | payer OTHER ==
[2021-08-18 06:33] LABS: BASOPHILS ABSOLUTE AUTO 0.05 K/mm3 (0.00-0.23); BASOPHILS PERCENT AUTO 1 % (0-2); EOSINOPHILS ABSOLUTE AUTO 0.51 K/mm3 (0.00-0.68); EOSINOPHILS PERCENT AUTO 9 % (0-6); IMMATURE GRAN ABSOLUTE AUTO 0.01 K/mm3 (0.00-0.10); IMMATURE GRAN PERCENT AUTO 0 % (0-1); LYMPHOCYTES ABSOLUTE AUTO 1.21 K/mm3 (0.84-5.20); LYMPHOCYTES PERCENT AUTO 21 % (21-46); MONOCYTES ABSOLUTE AUTO 0.32 K/mm3 (0.16-1.47); MONOCYTES PERCENT AUTO 6 % (4-13); Mean Corpuscular HGB 28.9 pg (26.0-34.0); Mean Corpuscular HGB Conc 31.6 g/dL (31.5-36.5); Mean Corpuscular Volume 92 fL (80-100); NEUTROPHILS ABSOLUTE AUTO 3.59 K/mm3 (1.96-9.15); NEUTROPHILS PERCENT AUTO 63 % (41-73); Platelet Count 134 K/mm3 (150-400); RDW Coefficient Variation 16.6 % (11.7-14.2); RDW Standard Deviation 55.8 fL (35.1-46.3); Red Blood Cell Count 4.15 M/mm3 (3.80-5.20); White Blood Cell Count 5.69 K/mm3 (4.00-11.30)
[2021-08-18 06:49] LABS: Alanine Aminotransfer (ALT/SGP 293 U/L (12-78); Albumin, Blood 2.6 g/dL (3.4-5.0); Albumin/Globulin Ratio 0.9 (0.8-1.8); Alk Phos 157 U/L (50-136); Anion Gap 5 mmol/L (6-16); Aspartate Aminotrans (AST/SGOT 88 U/L (12-37); Bilirubin, Total 0.1 mg/dL (0.1-1.0); Blood Urea Nitrogen 25 mg/dL (8-24); Bun/Creatinine Ratio 31.8 (12.0-20.0); CO2, Blood 26 mmol/L (21-32); Calcium, Blood 8.4 mg/dL (8.5-10.1); Chloride, Blood 111 mmol/L (98-108); Creatinine, Blood 0.79 mg/dL (0.40-1.00); Glomerular Filtration Rate >60 (60-); Glucose, Blood 305 mg/dL (70-99); Potassium, Blood 3.7 mmol/L (3.5-5.5); Sodium, Blood 142 mmol/L (136-145); Total Protein, Blood 5.6 g/dL (6.4-8.2)
[2021-08-18 06:56] LABS: Mean Platelet Volume 13.2 fL (9.1-12.4)
[2021-08-20 17:09] LABS: HIV-1 RNA BY PCR <20 (.)
== END ==
LOC: LAB UVN 04:00 → EDSTATUS 10:41
PROVIDERS: Internal Medicine
DX: B20 Human immunodeficiency virus [HIV] disease (principal)
CPT/HCPCS: 80053; 85025; 87536

== ENCOUNTER → 2021-08-23 | Outpatient (CLI) | payer OTHER ==
[~2021-08-23] MED LIST changes: -ELIQUIS5 M2 PO
[2021-08-24 17:11] LABS: % CD 4 POS. LYMPH. 49.3 % (30.8-58.5); ABSOLUTE CD 4 HELPER 690 /uL (359-1519); BASO (ABSOLUTE) 0.1 x10E3/uL (0.0-0.2); BASOS 1 % (Not Estab.); EOS 5 % (Not Estab.); EOS (ABSOLUTE) 0.5 x10E3/uL (0.0-0.4); HEMOGLOBIN 12.8 g/dL (11.1-15.9); HIV-1 RNA BY PCR <20 (.); IMMATURE GRANULOCYTES 0 % (Not Estab.); LYMPHS 16 % (Not Estab.); LYMPHS (ABSOLUTE) 1.4 x10E3/uL (0.7-3.1); MCV 91 fL (79-97); MONOCYTES 5 % (Not Estab.); MONOCYTES(ABSOLUTE) 0.5 x10E3/uL (0.1-0.9); NEUTROPHILS 73 % (Not Estab.); NEUTROPHILS (ABSOLUTE) 6.4 x10E3/uL (1.4-7.0); PLATELETS 162 x10E3/uL (150-450); RBC 4.41 x10E6/uL (3.77-5.28); WBC 8.9 x10E3/uL (3.4-10.8)
== END | disposition home or self-care (01) ==
LOC: LAB SHORT 10:25
PROVIDERS: Internal Medicine Infectious Disease
DX: B20 Human immunodeficiency virus [HIV] disease (principal)
CPT/HCPCS: 86361; 87536

== ENCOUNTER 2021-09-28 06:12 | Day surgery (SDC) | payer OTHER ==
[~2021-09-28] VITALS: Ht 167.6 cm; Wt 61.0 kg
[2021-09-28] MEDS ORDERED: LEVFLO500 PO (06:56)
[2021-09-28] MEDS ORDERED: ELIQUIS5 M2 PO (06:59)
--- NOTE | 2021-09-28 09:18 | NUR ---
Patient [facility] to [facility]. awakens easily and responds to questions appropriately. right groin site soft and nontender. no hematoma. no bleeding. dressing D&I.
--- NOTE | 2021-09-28 11:00 | NUR ---
PHONED RIGO CESAR AT [facility]. FULL REPORT GIVEN ALONG WITH THE POST PROCEDURE DISCHARGE INSTRUCTION.
--- NOTE | 2021-09-28 13:00 | NUR ---
PATIENT VERBALIZED UNDERSTANDING OF DISCHARGE INSTRUCTIONS AND PRECAUTIONS. RIGHT GROIN SITE REMAINS SOFT AND NONTENDER. NO HEMATOMA. NO BLEEDING. IV SITE DCED WITH CATHERTER IN TACT. PATIENT UP TO WHEELCAHIR WITH STANDBY ASSIST. TAKEN TO [facility] FOR RIDE HOME. NO FURTHER QUESTIONS.
== END 2021-09-28 12:30 | disposition home or self-care (01) ==
LOC: MHTC 06:12
DX: E11.51 Type 2 diabetes mellitus with diabetic peripheral angiopathy without gangrene (principal); I70.213 Atherosclerosis of native arteries of extremities with intermittent claudication, bilateral legs; I70.229 Atherosclerosis of native arteries of extremities with rest pain, unspecified extremity; I48.91 Unspecified atrial fibrillation; I10 Essential (primary) hypertension; M10.9 Gout, unspecified; Z98.890 Other specified postprocedural states; Z89.511 Acquired absence of right leg below knee; Z21 Asymptomatic human immunodeficiency virus [HIV] infection status; Z86.718 Personal history of other venous thrombosis and embolism; Z86.711 Personal history of pulmonary embolism; Z87.891 Personal history of nicotine dependence; Z88.2 Allergy status to sulfonamides; Z88.5 Allergy status to narcotic agent; Z88.6 Allergy status to analgesic agent; Z88.8 Allergy status to other drugs, medicaments and biological substances; Z91.02 Food additives allergy status; Z79.01 Long term (current) use of anticoagulants; Z79.02 Long term (current) use of antithrombotics/antiplatelets; Z79.4 Long term (current) use of insulin
CPT/HCPCS: 37229; 37233; 75716; 75774; 76937; 82947; 99152; 99153; C1724; C1760; C1769; C1887; C1894; J1644; J2250; J3010; J7030; J7050; Q9967

== ENCOUNTER → 2021-10-19 | Outpatient (CLI) | payer OTHER ==
[~2021-10-19] MED LIST changes: +ELIQUIS5 M2 PO
[2021-10-19 06:24] LABS: Hemoglobin 13.1 g/dL (11.5-16.0); Mean Corpuscular HGB 29.8 pg (26.0-34.0); Mean Corpuscular HGB Conc 33.6 g/dL (31.5-36.5); Mean Corpuscular Volume 89 fL (80-100); Mean Platelet Volume 12.9 fL (9.1-12.4); Platelet Count 167 K/mm3 (150-400); RDW Standard Deviation 55.3 fL (35.1-46.3); Red Blood Cell Count 4.39 M/mm3 (3.80-5.20); White Blood Cell Count 7.28 K/mm3 (4.00-11.30)
[2021-10-19 06:39] LABS: Alanine Aminotransfer (ALT/SGP 388 U/L (12-78); Albumin, Blood 2.5 g/dL (3.4-5.0); Albumin/Globulin Ratio 0.7 (0.8-1.8); Alk Phos 220 U/L (50-136); Anion Gap 6 mmol/L (6-16); Aspartate Aminotrans (AST/SGOT 257 U/L (12-37); Bilirubin, Total 0.3 mg/dL (0.1-1.0); Blood Urea Nitrogen 30 mg/dL (8-24); Bun/Creatinine Ratio 33.1 (12.0-20.0); CO2, Blood 23 mmol/L (21-32); Calcium, Blood 8.1 mg/dL (8.5-10.1); Chloride, Blood 110 mmol/L (98-108); Creatinine, Blood 0.91 mg/dL (0.40-1.00); Globulin, Blood 3.4 g/dL (2.2-4.0); Glomerular Filtration Rate >60 (60-); Glucose, Blood 122 mg/dL (70-99); Potassium, Blood 4.1 mmol/L (3.5-5.5); Sodium, Blood 139 mmol/L (136-145); Total Protein, Blood 5.9 g/dL (6.4-8.2)
== END | disposition home or self-care (01) ==
LOC: LAB UVN 05:00 → EDSTATUS 11:21
PROVIDERS: Internal Medicine
DX: I10 Essential (primary) hypertension (principal)
CPT/HCPCS: 80053; 85027

== ENCOUNTER → 2021-11-02 | Outpatient (CLI) | payer OTHER ==
[2021-11-02 15:33] LABS: Alanine Aminotransfer (ALT/SGP 316 U/L (12-78); Albumin, Blood 2.4 g/dL (3.4-5.0); Albumin/Globulin Ratio 1.1 (0.8-1.8); Alk Phos 234 U/L (50-136); Anion Gap 6 mmol/L (6-16); Aspartate Aminotrans (AST/SGOT 238 U/L (12-37); Bilirubin, Direct 0.1 mg/dL (0.0-0.3); Bilirubin, Indirect 0.1 mg/dL (0.1-0.7); Bilirubin, Total 0.2 mg/dL (0.1-1.0); Blood Urea Nitrogen 28 mg/dL (8-24); Bun/Creatinine Ratio 30.8 (12.0-20.0); CO2, Blood 21 mmol/L (21-32); Calcium, Blood 7.3 mg/dL (8.5-10.1); Chloride, Blood 108 mmol/L (98-108); Creatinine, Blood 0.91 mg/dL (0.40-1.00); Globulin, Blood 2.2 g/dL (2.2-4.0); Glomerular Filtration Rate >60 (60-); Glucose, Blood 498 mg/dL (70-99); Magnesium, Blood 1.5 mg/dL (1.6-2.4); Phosphorus, Blood 3.1 mg/dL (2.5-4.9); Potassium, Blood 4.9 mmol/L (3.5-5.5); Sodium, Blood 135 mmol/L (136-145); Total Protein, Blood 4.6 g/dL (6.4-8.2)
== END | disposition home or self-care (01) ==
LOC: EDSTATUS 11:22 → LAB UVN 13:45
PROVIDERS: Internal Medicine
DX: N18.30 Chronic kidney disease, stage 3 unspecified (principal); N25.81 Secondary hyperparathyroidism of renal origin; E55.9 Vitamin D deficiency, unspecified; E78.00 Pure hypercholesterolemia, unspecified; R76.9 Abnormal immunological finding in serum, unspecified; R94.5 Abnormal results of liver function studies
CPT/HCPCS: 80053; 82248; 83735; 84100

== ENCOUNTER 2021-11-15 06:25 | Day surgery (SDC) | payer OTHER ==
[~2021-11-15] VITALS: Ht 167.6 cm; Wt 56.7 kg
--- NOTE | 2021-11-15 10:00 | NUR ---
Patient arrived to [facility] recovery room. Awake and responds appropriately. left groin site soft and nontemnder. no hematoma, no bleeding.
--- NOTE | 2021-11-15 11:40 | NUR ---
PT ASSISTED WITH USING BEDPAN, 500CC CLEAR YELLOW URINE VOIDED. PT ABLE TO ASSIST WITH TURNING SIDE TO SIDE. LEFT GROIN SITE APPEARS SOFT NON TENDER WITH NO BLEEDING OR OOZING NOTED.
--- NOTE | 2021-11-15 13:28 | NUR ---
LEFT GROIN SITE REMAINS STABLE. PATIENT SITTING UP EATING LUNCH.
--- NOTE | 2021-11-15 14:10 | NUR ---
patient up at bedside dressing by self. left groin site remains soft and nontender, no hematoma, no bleeding, dressing d&i.
--- NOTE | 2021-11-15 14:44 | NUR ---
patient verbalized understanding of discharge instructions and precautions. IV site dced with catheter intact. left groin site unchanged. no further questions. Patient discharged home via personal wheelcahir. [employer] hyster driver here to transport patient home.
== END 2021-11-15 14:20 | disposition home or self-care (01) ==
LOC: MHTC 06:25
DX: E11.51 Type 2 diabetes mellitus with diabetic peripheral angiopathy without gangrene (principal); I70.223 Atherosclerosis of native arteries of extremities with rest pain, bilateral legs; I48.91 Unspecified atrial fibrillation; M10.9 Gout, unspecified; B20 Human immunodeficiency virus [HIV] disease; I10 Essential (primary) hypertension; Z79.4 Long term (current) use of insulin; Z79.84 Long term (current) use of oral hypoglycemic drugs; Z89.511 Acquired absence of right leg below knee; Z86.711 Personal history of pulmonary embolism; Z79.01 Long term (current) use of anticoagulants; Z87.442 Personal history of urinary calculi; Z87.891 Personal history of nicotine dependence; Z88.6 Allergy status to analgesic agent; Z88.2 Allergy status to sulfonamides; Z88.8 Allergy status to other drugs, medicaments and biological substances
CPT/HCPCS: 37226; 75716; 75774; 76937; 99152; 99153; C1725; C1760; C1769; C1874; C1887; C1894; J1644; J2250; J3010; J7030; J7050; Q9967

== ENCOUNTER 2021-12-11 13:49 | Emergency (ER) | payer OTHER ==
[~2021-12-11] VITALS: Ht 167.6 cm; Wt 59.0 kg
[2021-12-11 14:37] LABS: BASOPHILS ABSOLUTE AUTO 0.03 K/mm3 (0.00-0.23); BASOPHILS PERCENT AUTO 1 % (0-2); EOSINOPHILS ABSOLUTE AUTO 0.16 K/mm3 (0.00-0.68); EOSINOPHILS PERCENT AUTO 3 % (0-6); Hematocrit 35.7 % (33.0-51.0); Hemoglobin 11.6 g/dL (11.5-16.0); IMMATURE GRAN ABSOLUTE AUTO 0.01 K/mm3 (0.00-0.10); IMMATURE GRAN PERCENT AUTO 0 % (0-1); LYMPHOCYTES ABSOLUTE AUTO 1.12 K/mm3 (0.84-5.20); LYMPHOCYTES PERCENT AUTO 22 % (21-46); MONOCYTES ABSOLUTE AUTO 0.31 K/mm3 (0.16-1.47); MONOCYTES PERCENT AUTO 6 % (4-13); Mean Corpuscular HGB 33.5 pg (26.0-34.0); Mean Corpuscular HGB Conc 32.5 g/dL (31.5-36.5); Mean Corpuscular Volume 103 fL (80-100); Mean Platelet Volume 12.6 fL (9.1-12.4); NEUTROPHILS PERCENT AUTO 68 % (41-73); Platelet Count 117 K/mm3 (150-400); RDW Coefficient Variation 14.6 % (11.7-14.2); RDW Standard Deviation 55.8 fL (35.1-46.3); Red Blood Cell Count 3.46 M/mm3 (3.80-5.20); White Blood Cell Count 5.03 K/mm3 (4.00-11.30)
[2021-12-11 14:57] LABS: Alanine Aminotransfer (ALT/SGP 129 U/L (12-78); Albumin, Blood 2.6 g/dL (3.4-5.0); Alk Phos 151 U/L (50-136); Anion Gap 6 mmol/L (6-16); Aspartate Aminotrans (AST/SGOT 142 U/L (12-37); Bilirubin, Total 0.2 mg/dL (0.1-1.0); Blood Urea Nitrogen 30 mg/dL (8-24); Bun/Creatinine Ratio 40.8 (12.0-20.0); CO2, Blood 25 mmol/L (21-32); Calcium, Blood 8.3 mg/dL (8.5-10.1); Chloride, Blood 112 mmol/L (98-108); Creatinine, Blood 0.74 mg/dL (0.40-1.00); Globulin, Blood 2.7 g/dL (2.2-4.0); Glomerular Filtration Rate >60 (60-); Glucose, Blood 301 mg/dL (70-99); Potassium, Blood 4.7 mmol/L (3.5-5.5); Sodium, Blood 143 mmol/L (136-145); Total Protein, Blood 5.3 g/dL (6.4-8.2)
== END 2021-12-11 16:48 | disposition home or self-care (01) ==
LOC: ER 13:49
PROVIDERS: Emergency Medicine
DX: S80.12XA Contusion of left lower leg, initial encounter (principal); E11.51 Type 2 diabetes mellitus with diabetic peripheral angiopathy without gangrene; I12.9 Hypertensive chronic kidney disease with stage 1 through stage 4 chronic kidney disease, or unspecified chronic kidney disease; E11.22 Type 2 diabetes mellitus with diabetic chronic kidney disease; N18.30 Chronic kidney disease, stage 3 unspecified; E78.5 Hyperlipidemia, unspecified; I48.91 Unspecified atrial fibrillation; E11.40 Type 2 diabetes mellitus with diabetic neuropathy, unspecified; Z86.711 Personal history of pulmonary embolism; Z86.718 Personal history of other venous thrombosis and embolism; Z88.2 Allergy status to sulfonamides; Z88.8 Allergy status to other drugs, medicaments and biological substances; Z88.5 Allergy status to narcotic agent; Z91.041 Radiographic dye allergy status; Z79.899 Other long term (current) drug therapy; Z79.4 Long term (current) use of insulin; X58.XXXA Exposure to other specified factors, initial encounter
CPT/HCPCS: 80053; 85025; 93926; 93971

== ENCOUNTER → 2021-12-15 | Outpatient (CLI) | payer OTHER ==
[2021-12-15 07:20] LABS: Hematocrit 38.4 % (33.0-51.0); Hemoglobin 12.5 g/dL (11.5-16.0); Mean Corpuscular HGB Conc 32.6 g/dL (31.5-36.5); Mean Corpuscular Volume 101 fL (80-100); Platelet Count 112 K/mm3 (150-400); RDW Coefficient Variation 13.8 % (11.7-14.2); RDW Standard Deviation 52.1 fL (35.1-46.3); Red Blood Cell Count 3.79 M/mm3 (3.80-5.20)
[2021-12-15 07:42] LABS: Alanine Aminotransfer (ALT/SGP 122 U/L (12-78); Albumin, Blood 2.6 g/dL (3.4-5.0); Alk Phos 147 U/L (50-136); Anion Gap 8 mmol/L (6-16); Aspartate Aminotrans (AST/SGOT 62 U/L (12-37); Bilirubin, Total 0.2 mg/dL (0.1-1.0); Blood Urea Nitrogen 24 mg/dL (8-24); Bun/Creatinine Ratio 31.7 (12.0-20.0); CHOL/HDL RATIO 1.4; CO2, Blood 27 mmol/L (21-32); Calcium, Blood 8.6 mg/dL (8.5-10.1); Chloride, Blood 109 mmol/L (98-108); Cholesterol 62 mg/dL (50-200); Creatinine, Blood 0.76 mg/dL (0.40-1.00); Globulin, Blood 2.7 g/dL (2.2-4.0); Glomerular Filtration Rate >60 (60-); Glucose, Blood 130 mg/dL (70-99); HDL Cholesterol 44 mg/dL (>39); LDL/HDL RATIO 0.1; Low Density Lipoprotein Chol 4 mg/dL (0-110); Potassium, Blood 3.8 mmol/L (3.5-5.5); Sodium, Blood 144 mmol/L (136-145); Total Protein, Blood 5.3 g/dL (6.4-8.2); Triglycerides 72 mg/dL (30-160); Very Low Density Lipoprot Chol 14 mg/dL (6-32)
== END | disposition home or self-care (01) ==
LOC: LAB UVN 06:40 → EDSTATUS 14:37
PROVIDERS: Internal Medicine
DX: E11.52 Type 2 diabetes mellitus with diabetic peripheral angiopathy with gangrene (principal); D64.9 Anemia, unspecified; I73.9 Peripheral vascular disease, unspecified; I10 Essential (primary) hypertension
CPT/HCPCS: 80053; 80061; 83036; 84443; 85027

== ENCOUNTER → 2021-12-22 | Outpatient (CLI) | payer OTHER ==
[2021-12-22 07:44] LABS: Albumin, Blood 2.8 g/dL (3.4-5.0); Anion Gap 8 mmol/L (6-16); Blood Urea Nitrogen 30 mg/dL (8-24); Bun/Creatinine Ratio 36.8 (12.0-20.0); CO2, Blood 27 mmol/L (21-32); Calcium, Blood 8.3 mg/dL (8.5-10.1); Chloride, Blood 109 mmol/L (98-108); Creatinine, Blood 0.82 mg/dL (0.40-1.00); Glomerular Filtration Rate >60 (60-); Glucose, Blood 138 mg/dL (70-99); Phosphorus, Blood 5.1 mg/dL (2.5-4.9); Sodium, Blood 144 mmol/L (136-145)
== END | disposition home or self-care (01) ==
LOC: LAB UVN 05:45 → EDSTATUS 14:39
PROVIDERS: Internal Medicine
DX: N18.30 Chronic kidney disease, stage 3 unspecified (principal); E83.42 Hypomagnesemia
CPT/HCPCS: 80069; 83036; 85018

== ENCOUNTER → 2021-12-29 | Outpatient (CLI) | payer OTHER ==
[2021-12-29 20:28] LABS: Albumin, Blood 2.8 g/dL (3.4-5.0); Anion Gap 8 mmol/L (6-16); Blood Urea Nitrogen 26 mg/dL (8-24); Bun/Creatinine Ratio 30.7 (12.0-20.0); CO2, Blood 24 mmol/L (21-32); Calcium, Blood 8.5 mg/dL (8.5-10.1); Chloride, Blood 108 mmol/L (98-108); Creatinine, Blood 0.85 mg/dL (0.40-1.00); Glomerular Filtration Rate >60 (60-); Glucose, Blood 348 mg/dL (70-99); Potassium, Blood 4.7 mmol/L (3.5-5.5); Sodium, Blood 140 mmol/L (136-145)
== END | disposition home or self-care (01) ==
LOC: EDSTATUS 14:40 → LAB UVN 18:40
PROVIDERS: Internal Medicine
DX: N18.30 Chronic kidney disease, stage 3 unspecified (principal); D63.1 Anemia in chronic kidney disease; R76.9 Abnormal immunological finding in serum, unspecified; R94.5 Abnormal results of liver function studies; R94.6 Abnormal results of thyroid function studies
CPT/HCPCS: 80069; 85018

== ENCOUNTER → 2022-01-02 | Outpatient (CLI) | payer OTHER ==
[2022-01-02 10:10] LABS: Creatinine Urine 32.2 mg/dL (27.00-270.00); Microalbumin, Urine Quant. 71.1 mg/L (0.000-20.000); Protein, Urine Quantitative 52.2 mg/dL (0.0-11.9)
== END | disposition home or self-care (01) ==
LOC: LAB UVN 08:51 → EDSTATUS 14:41
PROVIDERS: Internal Medicine
DX: N18.30 Chronic kidney disease, stage 3 unspecified (principal); D63.1 Anemia in chronic kidney disease; R76.9 Abnormal immunological finding in serum, unspecified; R94.6 Abnormal results of thyroid function studies
CPT/HCPCS: 81050; 82043; 82570; 84156

== ENCOUNTER → 2022-02-16 | Outpatient (CLI) | payer OTHER ==
[2022-02-16 15:13] LABS: Source, Urine Voided
[2022-02-16 16:30] LABS: Appearance, Urine Hazy (Clear); Bilirubin, Urine Neg (Neg); Blood, Urine 1+ (Neg); Color, Urine Yellow (P-Yellow); Glucose Qualitative, Urine Neg (Neg); Ketones, Urine Neg (Neg); Leukocyte Esterase, Urine Neg (Neg); Nitrite, Urine Pos (Neg); Protein, Urine 2+ (Neg); Urobilinogen, Urine NORM (Normal)
[2022-02-16 16:47] LABS: Bacteria Many /hpf; Squamous Epithelial Cells Few /hpf (Few)
== END | disposition home or self-care (01) ==
LOC: EDSTATUS 11:45 → LAB UVN 15:08
PROVIDERS: Internal Medicine
DX: R39.9 Unspecified symptoms and signs involving the genitourinary system (principal)
CPT/HCPCS: 81001; 87077; 87086; 87186

== ENCOUNTER → 2022-02-28 | Outpatient (CLI) | payer OTHER ==
[2022-02-28 06:53] LABS: Albumin, Blood 2.8 g/dL (3.4-5.0); Anion Gap 5 mmol/L (6-16); Blood Urea Nitrogen 19 mg/dL (8-24); Bun/Creatinine Ratio 29.5 (12.0-20.0); CO2, Blood 27 mmol/L (21-32); Calcium, Blood 8.5 mg/dL (8.5-10.1); Chloride, Blood 111 mmol/L (98-108); Creatinine, Blood 0.65 mg/dL (0.40-1.00); Glomerular Filtration Rate 95 (60-); Glucose, Blood 174 mg/dL (70-99); Phosphorus, Blood 3.1 mg/dL (2.5-4.9); Potassium, Blood 3.9 mmol/L (3.5-5.5); Sodium, Blood 143 mmol/L (136-145)
== END | disposition home or self-care (01) ==
LOC: LAB UVN 04:53 → EDSTATUS 11:46
PROVIDERS: Internal Medicine
DX: E11.52 Type 2 diabetes mellitus with diabetic peripheral angiopathy with gangrene (principal)
CPT/HCPCS: 80069

== ENCOUNTER → 2022-03-01 | Outpatient (CLI) | payer OTHER | END | disposition home or self-care (01) | LOC: LAB UVN 04:50 → EDSTATUS 11:47 | DX: D64.9 Anemia, unspecified (principal) | CPT/HCPCS: 85018 ==

== ENCOUNTER → 2022-04-21 | Outpatient (CLI) | payer OTHER ==
[~2022-04-21] MED LIST changes: +CEFD300 PO
[2022-04-22 06:00] LABS: Source, Urine Clean Catch
[2022-04-22 06:04] LABS: Appearance, Urine Hazy (Clear); Bilirubin, Urine Neg (Neg); Blood, Urine 5+ (Neg); Color, Urine Yellow (P-Yellow); Glucose Qualitative, Urine 3+ (Neg); Ketones, Urine Neg (Neg); Leukocyte Esterase, Urine Neg (Neg); Nitrite, Urine Pos (Neg); Protein, Urine 3+ (Neg); Urobilinogen, Urine NORM (Normal)
[2022-04-22 06:24] LABS: Bacteria Many /hpf; Calcium Oxalate Crystals Mod /hpf; Squamous Epithelial Cells Few /hpf (Few); Yeast/Fungi Urine Many /hpf
== END ==
LOC: LAB UVN 05:58 → EDSTATUS 04-24 10:16
PROVIDERS: Internal Medicine
DX: R39.9 Unspecified symptoms and signs involving the genitourinary system (principal)
CPT/HCPCS: 81001; 87077; 87086; 87186

== ENCOUNTER → 2022-05-21 | Outpatient (CLI) | payer OTHER ==
[2022-05-21 12:54] LABS: BASOPHILS ABSOLUTE AUTO 0.04 K/mm3 (0.00-0.23); BASOPHILS PERCENT AUTO 1 % (0-2); EOSINOPHILS ABSOLUTE AUTO 0.19 K/mm3 (0.00-0.68); EOSINOPHILS PERCENT AUTO 3 % (0-6); Hematocrit 38.6 % (33.0-51.0); Hemoglobin 12.8 g/dL (11.5-16.0); IMMATURE GRAN ABSOLUTE AUTO 0.01 K/mm3 (0.00-0.10); IMMATURE GRAN PERCENT AUTO 0 % (0-1); LYMPHOCYTES ABSOLUTE AUTO 1.19 K/mm3 (0.84-5.20); LYMPHOCYTES PERCENT AUTO 21 % (21-46); MONOCYTES ABSOLUTE AUTO 0.38 K/mm3 (0.16-1.47); MONOCYTES PERCENT AUTO 7 % (4-13); Mean Corpuscular HGB 34.1 pg (26.0-34.0); Mean Corpuscular HGB Conc 33.2 g/dL (31.5-36.5); Mean Corpuscular Volume 103 fL (80-100); NEUTROPHILS PERCENT AUTO 68 % (41-73); Platelet Count 121 K/mm3 (150-400); RDW Coefficient Variation 13.5 % (11.7-14.2); RDW Standard Deviation 51.8 fL (35.1-46.3); Red Blood Cell Count 3.75 M/mm3 (3.80-5.20); White Blood Cell Count 5.71 K/mm3 (4.00-11.30)
[2022-05-21 13:16] LABS: Mean Platelet Volume 13.1 fL (9.1-12.4)
[2022-05-21 13:17] LABS: International Normalized Ratio 1.06; Prothrombin Time Results 11.1 Sec (9.7-11.5)
[2022-05-21 13:18] LABS: Bun/Creatinine Ratio 28.7 (12.0-20.0); Calcium, Blood 8.2 mg/dL (8.5-10.1); Creatinine, Blood 0.7 mg/dL (0.40-1.00); Potassium, Blood 4.4 mmol/L (3.5-5.5)
== END ==
LOC: EDSTATUS 09:29 → LAB UVN 11:53
PROVIDERS: Internal Medicine
DX: I48.0 Paroxysmal atrial fibrillation (principal); E11.69 Type 2 diabetes mellitus with other specified complication
CPT/HCPCS: 80048; 85025; 85610

== ENCOUNTER → 2022-06-07 | Outpatient (CLI) | payer OTHER ==
[2022-06-07 18:29] LABS: Source, Urine Clean Catch
[2022-06-07 18:44] LABS: Appearance, Urine Clear (Clear); Bilirubin, Urine Neg (Neg); Blood, Urine 5+ (Neg); Color, Urine Yellow (P-Yellow); Glucose Qualitative, Urine 4+ (Neg); Ketones, Urine Neg (Neg); Leukocyte Esterase, Urine 1+ (Neg); Nitrite, Urine Pos (Neg); Protein, Urine 2+ (Neg); Urobilinogen, Urine NORM (Normal)
[2022-06-07 19:30] LABS: Bacteria Many /hpf; Squamous Epithelial Cells Few /hpf (Few)
== END ==
LOC: EDSTATUS 09:31 → LAB UVN 17:30
PROVIDERS: Internal Medicine
DX: N39.0 Urinary tract infection, site not specified (principal)
CPT/HCPCS: 81001; 87077; 87086; 87186

== ENCOUNTER → 2022-06-16 | Outpatient (CLI) | payer OTHER ==
[2022-06-16 18:33] LABS: BASOPHILS ABSOLUTE AUTO 0.03 K/mm3 (0.00-0.23); BASOPHILS PERCENT AUTO 1 % (0-2); EOSINOPHILS ABSOLUTE AUTO 0.22 K/mm3 (0.00-0.68); EOSINOPHILS PERCENT AUTO 4 % (0-6); Hematocrit 38.9 % (33.0-51.0); Hemoglobin 12.9 g/dL (11.5-16.0); IMMATURE GRAN ABSOLUTE AUTO 0.01 K/mm3 (0.00-0.10); IMMATURE GRAN PERCENT AUTO 0 % (0-1); LYMPHOCYTES ABSOLUTE AUTO 1.35 K/mm3 (0.84-5.20); LYMPHOCYTES PERCENT AUTO 24 % (21-46); MONOCYTES ABSOLUTE AUTO 0.51 K/mm3 (0.16-1.47); MONOCYTES PERCENT AUTO 9 % (4-13); Mean Corpuscular HGB 33.7 pg (26.0-34.0); Mean Corpuscular HGB Conc 33.2 g/dL (31.5-36.5); Mean Corpuscular Volume 102 fL (80-100); NEUTROPHILS ABSOLUTE AUTO 3.61 K/mm3 (1.96-9.15); NEUTROPHILS PERCENT AUTO 63 % (41-73); Platelet Count 129 K/mm3 (150-400); RDW Coefficient Variation 13.1 % (11.7-14.2); Red Blood Cell Count 3.83 M/mm3 (3.80-5.20); White Blood Cell Count 5.73 K/mm3 (4.00-11.30)
[2022-06-16 18:50] LABS: Albumin, Blood 2.8 g/dL (3.4-5.0); Albumin/Globulin Ratio 0.8 (0.8-1.8); Bilirubin, Direct 0.1 mg/dL (0.0-0.3); Bilirubin, Indirect 0.1 mg/dL (0.1-0.7); Bilirubin, Total 0.2 mg/dL (0.1-1.0); Bun/Creatinine Ratio 27.9 (12.0-20.0); Calcium, Blood 8.9 mg/dL (8.5-10.1); Creatinine, Blood 0.97 mg/dL (0.40-1.00); Globulin, Blood 3.4 g/dL (2.2-4.0); Potassium, Blood 3.8 mmol/L (3.5-5.5); Total Protein, Blood 6.2 g/dL (6.4-8.2)
== END ==
LOC: EDSTATUS 12:17 → LAB UVN 17:00
PROVIDERS: Internal Medicine
DX: E11.52 Type 2 diabetes mellitus with diabetic peripheral angiopathy with gangrene (principal); B20 Human immunodeficiency virus [HIV] disease; D63.8 Anemia in other chronic diseases classified elsewhere
CPT/HCPCS: 80053; 82248; 85025

== ENCOUNTER → 2022-07-31 | Outpatient (CLI) | payer OTHER ==
[2022-07-31 10:55] LABS: Albumin, Blood 2.4 g/dL (3.4-5.0); Albumin/Globulin Ratio 0.8 (0.8-1.8); Bilirubin, Total 0.2 mg/dL (0.1-1.0); Bun/Creatinine Ratio 25.5 (12.0-20.0); Calcium, Blood 8.3 mg/dL (8.5-10.1); Creatinine, Blood 0.94 mg/dL (0.40-1.00); Globulin, Blood 2.9 g/dL (2.2-4.0); Potassium, Blood 4.1 mmol/L (3.5-5.5); Total Protein, Blood 5.3 g/dL (6.4-8.2)
== END | disposition home or self-care (01) ==
LOC: EDSTATUS 09:40 → LAB UVN 10:02 → LAB SHORT 10:02
PROVIDERS: Internal Medicine
DX: E11.52 Type 2 diabetes mellitus with diabetic peripheral angiopathy with gangrene (principal); B20 Human immunodeficiency virus [HIV] disease; E78.2 Mixed hyperlipidemia
CPT/HCPCS: 80053

== ENCOUNTER → 2022-08-01 | Outpatient (CLI) | payer OTHER | END | disposition home or self-care (01) | DX: N76.0 Acute vaginitis (principal); N93.9 Abnormal uterine and vaginal bleeding, unspecified ==

== ENCOUNTER 2023-09-28 23:55 | Emergency (ER) | payer OTHER ==
[~2023-09-28] VITALS: Ht 170.2 cm; Wt 79.4 kg
[~2023-09-28 23:55] MED LIST changes: -ABACAVIR-LAMIV1 EAC3 PO; +[UNRECOGNIZED DRUG - OTHER] PO
[2023-09-29] MEDS ORDERED: VITAMIN C125 MG PO (01:10)
[2023-09-29] MEDS ORDERED: ATOR20 PO (01:11)
[2023-09-29] MEDS ORDERED: EDURANT25 MG PO (01:12)
[2023-09-29 01:15] LABS: BASOPHILS ABSOLUTE AUTO 0.04 K/mm3 (0.00-0.23); BASOPHILS PERCENT AUTO 1 % (0-2); EOSINOPHILS ABSOLUTE AUTO 0.27 K/mm3 (0.00-0.68); EOSINOPHILS PERCENT AUTO 4 % (0-6); Hematocrit 39.7 % (33.0-51.0); Hemoglobin 13.2 g/dL (11.5-16.0); IMMATURE GRAN ABSOLUTE AUTO 0.02 K/mm3 (0.00-0.10); IMMATURE GRAN PERCENT AUTO 0 % (0-1); LYMPHOCYTES ABSOLUTE AUTO 1.68 K/mm3 (0.84-5.20); LYMPHOCYTES PERCENT AUTO 23 % (21-46); MONOCYTES ABSOLUTE AUTO 0.44 K/mm3 (0.16-1.47); MONOCYTES PERCENT AUTO 6 % (4-13); Mean Corpuscular HGB 33.8 pg (26.0-34.0); Mean Corpuscular HGB Conc 33.2 g/dL (31.5-36.5); Mean Corpuscular Volume 102 fL (80-100); Mean Platelet Volume 11.2 fL (9.1-12.4); NEUTROPHILS ABSOLUTE AUTO 4.78 K/mm3 (1.96-9.15); NEUTROPHILS PERCENT AUTO 66 % (41-73); Platelet Count 170 K/mm3 (150-400); RDW Coefficient Variation 13.3 % (11.7-14.2); RDW Standard Deviation 50.1 fL (35.1-46.3); White Blood Cell Count 7.23 K/mm3 (4.00-11.30)
[2023-09-29] MEDS ORDERED: JARDIANCE10 MG PO (01:18)
[2023-09-29] MEDS ORDERED: FURO20 PO (01:19)
[2023-09-29] MEDS ORDERED: MELATONIN5 M1 PO (01:20)
[2023-09-29] MEDS ORDERED: NOVOLOG100 UNIT/2 SC (01:21)
[2023-09-29] MEDS ORDERED: INSULIN AS100 UNIT/7 SC (01:26)
[2023-09-29] MEDS ORDERED: OXYC10TA19 PO (01:27)
[2023-09-29 01:43] LABS: Albumin, Blood 3.3 g/dL (3.4-5.0); Bilirubin, Total 0.2 mg/dL (0.1-1.0); Bun/Creatinine Ratio 26.1 (12.0-20.0); Creatinine, Blood 1.11 mg/dL (0.40-1.00); Globulin, Blood 3.4 g/dL (2.2-4.0); Potassium, Blood 4.2 mmol/L (3.5-5.5); Total Protein, Blood 6.7 g/dL (6.4-8.2)
[2023-09-29] MEDS ORDERED: LIDO700A20 TOP (06:13)
[2023-09-29 09:12] VITALS: BP 160/85
== END 2023-09-29 09:12 | disposition home or self-care (01) ==
LOC: ER 23:55
PROVIDERS: Student in an Organized Health Care Education/Training Program
DX: R07.9 Chest pain, unspecified (principal); I12.9 Hypertensive chronic kidney disease with stage 1 through stage 4 chronic kidney disease, or unspecified chronic kidney disease; E11.22 Type 2 diabetes mellitus with diabetic chronic kidney disease; N18.30 Chronic kidney disease, stage 3 unspecified; E11.40 Type 2 diabetes mellitus with diabetic neuropathy, unspecified; Z21 Asymptomatic human immunodeficiency virus [HIV] infection status; E78.5 Hyperlipidemia, unspecified; D50.9 Iron deficiency anemia, unspecified; M81.0 Age-related osteoporosis without current pathological fracture; I73.9 Peripheral vascular disease, unspecified; Z86.711 Personal history of pulmonary embolism; Z86.718 Personal history of other venous thrombosis and embolism; I48.91 Unspecified atrial fibrillation; Z79.4 Long term (current) use of insulin; Z79.01 Long term (current) use of anticoagulants; Z79.02 Long term (current) use of antithrombotics/antiplatelets; Z79.899 Other long term (current) drug therapy; Z88.2 Allergy status to sulfonamides; Z88.8 Allergy status to other drugs, medicaments and biological substances; Z88.5 Allergy status to narcotic agent; Z91.041 Radiographic dye allergy status
CPT/HCPCS: 71046; 71275; 80053; 83690; 83880; 84484; 85025; 93005; 93010; 99285-25; A9270; Q9967